=== PATIENT | male | born 1955 | race African-American/Black ===

== ENCOUNTER 2019-01-30 14:19 | Inpatient (IN) ==
[2019-01-30 15:33] LABS: Basophils % 0.9 % (0.0-0.8); Eosinophils # 0.2 10*3/uL (0.0-0.87); Eosinophils % 4.7 % (0.00-10.9); Hematocrit 33.3 VOL% (42.0-52.0); Hemoglobin 10.6 GM/DL (14.0-18.0); Immature Granulocytes % 0.2 %; Immature Granulocytes Absolute 0.01 #; Lymphocytes % 23.9 % (21.2-54.2); Mean Corpuscular HGB Conc 31.8 GM/DL (32-36); Mean Corpuscular Volume 95.1 FL (87-102); Mean Platelet Volume 10.9 FL (9.6-12.0); Monocytes % 16.1 % (1.7-12.7); Neutrophils % 54.2 % (38.7-73.9); Platelet Count 155 T/CUMM (130-400); Red Cell Distribution Width 14.9 % (9.3-17.3); White Blood Count 4.2 T/CUMM (4-12)
[2019-01-30 15:50] LABS: Calcium 7.9 MG/DL (8.5-10.1); Osmolality,Calculated 292.5 MOS/KG (273-304)
[2019-01-30 16:15] LABS: Eosinophils 7 % (0-10); Lymphocytes 34 % (20-55); Segmented Neutrophils 50 % (50-85); Total Cells Counted 100
[2019-01-30 16:16] LABS: Platelet Estimate Normal; Target Cells 1+
[2019-01-30 16:17] LABS: Anisocytosis 2+; Macrocytosis 2+; Microcytosis 1+; Poikilocytosis Slight; Reactive Lymphocytes 1+
[2019-01-30] MEDS ORDERED: ACETAMINOPHEN 325 MG TABLET PO PRN (17:36)
[2019-01-30] MEDS ORDERED: ONDANSETRON 4 MG/2 ML VIAL IV PRN (17:36)
[2019-01-30] MEDS ORDERED: VANCOMYCIN INJ 1,750 MG in SODIUM CHLORIDE 0.9% 500 ML IV PRN (21:00)
[2019-01-30] MEDS ORDERED: VANCOMYCIN INJ 1,750 MG in SODIUM CHLORIDE 0.9% 500 ML IV ONE (21:00)
[2019-01-30] MEDS: ZALEPLON 5 MG CAPSULE PO PRN (22:02)
[2019-01-31 02:09] LABS: Apearance,Urine CLEAR (Clear); Bilirubin,Urine Negative (Negative); Blood, Urine Small mg/dL (Negative); Glucose,Urine (UA) 50 mg/dL (Negative); Ketones,Urine Negative (Negative); Nitrite,Urine Negative (Negative); Protein,Urine 100 MG/DL; RBC,Urine 2 /HPF (0-4); Urine Color Straw (Yellow); Urine Specific Gravity 1.011 (1.001-1.035); Urine Urobilinogen < 2.0 EU/DL (0.2-1.0)
[2019-01-31 04:35] LABS: Basophils % 0.8 % (0.0-0.8); Eosinophils # 0.2 10*3/uL (0.0-0.87); Eosinophils % 6.1 % (0.00-10.9); Hematocrit 31.2 VOL% (42.0-52.0); Immature Granulocytes % 0.3 %; Immature Granulocytes Absolute 0.01 #; Lymphocytes # 1.3 10*3/uL (1.4-4.0); Lymphocytes % 35.3 % (21.2-54.2); Mean Corpuscular HGB Conc 32.1 GM/DL (32-36); Mean Corpuscular Volume 94.3 FL (87-102); Mean Platelet Volume 10.8 FL (9.6-12.0); Neutrophils % 42.5 % (38.7-73.9); Platelet Count 140 T/CUMM (130-400); Red Blood Count 3.31 MC/CUMM (3.8-5.5); Red Cell Distribution Width 14.8 % (9.3-17.3); White Blood Count 3.6 T/CUMM (4-12)
[2019-01-31 05:09] LABS: Calcium 8.2 MG/DL (8.5-10.1); Risk Ratio 2.59; Thyroid Stimulating Hormone 1.07 uIU/ml (0.358-3.74); VLDL CHOLESTEROL 14.6 MG/DL
[2019-01-31] MEDS: amLODIPine 10 MG TABLET PO SCH (09:21)
[2019-01-31] MEDS: FUROSEMIDE 20 MG TABLET PO SCH (09:21)
[2019-01-31] MEDS: POTASSIUM CHLORIDE 20 MEQ TABLET PO SCH (09:21)
[2019-01-31] MEDS: DOXAZOSIN 4 MG TABLET PO SCH (09:21)
[2019-01-31] MEDS: propylthiouraciL 50 MG TABLET PO SCH (09:21)
[2019-01-31] MEDS: PANTOPRAZOLE 40 MG TABLET PO SCH (09:22)
[2019-01-31] MEDS: carvediloL 25 MG TABLET PO SCH ×2 (09:22→17:11)
[2019-01-31] MEDS: ZALEPLON 5 MG CAPSULE PO PRN (20:51)
[2019-01-31] MEDS: SIMVASTATIN 20 MG TABLET PO SCH (20:52)
[2019-01-31] MEDS: FAMOTIDINE 20 MG TABLET PO SCH (20:52)
[2019-02-01 04:45] LABS: Basophils % 0.8 % (0.0-0.8); Eosinophils # 0.2 10*3/uL (0.0-0.87); Hematocrit 31.8 VOL% (42.0-52.0); Hemoglobin 10.2 GM/DL (14.0-18.0); Immature Granulocytes % 0.3 %; Immature Granulocytes Absolute 0.01 #; Lymphocytes # 1.2 10*3/uL (1.4-4.0); Lymphocytes % 32.8 % (21.2-54.2); Mean Corpuscular HGB Conc 32.1 GM/DL (32-36); Mean Corpuscular Volume 94.1 FL (87-102); Monocytes % 15.3 % (1.7-12.7); Neutrophils % 44.8 % (38.7-73.9); Platelet Count 134 T/CUMM (130-400); Red Blood Count 3.38 MC/CUMM (3.8-5.5); Red Cell Distribution Width 14.7 % (9.3-17.3); White Blood Count 3.7 T/CUMM (4-12)
[2019-02-01 05:08] LABS: Calcium 8.4 MG/DL (8.5-10.1); Osmolality,Calculated 294.1 MOS/KG (273-304)
[2019-02-01] MEDS: FUROSEMIDE 20 MG TABLET PO SCH (08:12)
[2019-02-01] MEDS: PANTOPRAZOLE 40 MG TABLET PO SCH (08:12)
[2019-02-01] MEDS: propylthiouraciL 50 MG TABLET PO SCH (08:12)
[2019-02-01] MEDS: POTASSIUM CHLORIDE 20 MEQ TABLET PO SCH (08:12)
[2019-02-01] MEDS: DOXAZOSIN 4 MG TABLET PO SCH (08:12)
[2019-02-01] MEDS: amLODIPine 10 MG TABLET PO SCH (08:13)
[2019-02-01] MEDS: carvediloL 25 MG TABLET PO SCH ×2 (08:14→16:52)
[2019-02-01] MEDS ORDERED: VANCOMYCIN INJ 1,750 MG in SODIUM CHLORIDE 0.9% 500 ML IV ONE (12:00)
[2019-02-01] MEDS ORDERED: MAGNESIUM HYDROXIDE SUSP 30 ML UDCUP PO PRN (14:38)
[2019-02-01] MEDS: FAMOTIDINE 20 MG TABLET PO SCH (20:42)
[2019-02-01] MEDS: SIMVASTATIN 20 MG TABLET PO SCH (20:42)
[2019-02-02 04:02] LABS: Basophils % 0.7 % (0.0-0.8); Eosinophils # 0.2 10*3/uL (0.0-0.87); Eosinophils % 5.3 % (0.00-10.9); Hematocrit 31.3 VOL% (42.0-52.0); Hemoglobin 10.3 GM/DL (14.0-18.0); Immature Granulocytes % 0.2 %; Immature Granulocytes Absolute 0.01 #; Lymphocytes # 1.3 10*3/uL (1.4-4.0); Lymphocytes % 28.1 % (21.2-54.2); Mean Corpuscular HGB Conc 32.9 GM/DL (32-36); Mean Corpuscular Volume 93.4 FL (87-102); Mean Platelet Volume 10.9 FL (9.6-12.0); Monocytes % 15.1 % (1.7-12.7); Neutrophils % 50.6 % (38.7-73.9); Platelet Count 140 T/CUMM (130-400); Red Blood Count 3.35 MC/CUMM (3.8-5.5); Red Cell Distribution Width 14.6 % (9.3-17.3); White Blood Count 4.5 T/CUMM (4-12)
[2019-02-02 04:28] LABS: Calcium 8.1 MG/DL (8.5-10.1)
[2019-02-02] MEDS ORDERED: ALBUTEROL/IPRATROPIUM 3 ML NEB RESP TX ONE (05:52)
[2019-02-02 07:16] LABS: Anisocytosis 2+; Band Neutrophils 1 % (0-10); Eosinophils 3 % (0-10); Lymphocytes 25 % (20-55); Macrocytosis 2+; Platelet Estimate Adequate; Segmented Neutrophils 60 % (50-85); Total Cells Counted 100
[2019-02-02] MEDS: carvediloL 25 MG TABLET PO SCH (09:39)
[2019-02-02] MEDS: propylthiouraciL 50 MG TABLET PO SCH (09:39)
[2019-02-02] MEDS: DOXAZOSIN 4 MG TABLET PO SCH (09:39)
[2019-02-02] MEDS: POTASSIUM CHLORIDE 20 MEQ TABLET PO SCH (09:39)
[2019-02-02] MEDS: amLODIPine 10 MG TABLET PO SCH (09:40)
[2019-02-02] MEDS: FUROSEMIDE 20 MG TABLET PO SCH (09:40)
[2019-02-02] MEDS: PANTOPRAZOLE 40 MG TABLET PO SCH (09:40)
[2019-02-02] MEDS ORDERED: FUROSEMIDE 40 MG/4 ML VIAL IV ONE (10:57)
[2019-02-02] MEDS ORDERED: FUROSEMIDE 40 MG TABLET PO SCH (10:58)
[2019-02-02 11:09] VITALS: BP 174/75
== END 2019-02-02 14:17 | disposition home or self-care (01) | DRG 384 ==
LOC: N.ED 14:19 → N.EDINP 16:52 → INTOOBSV 16:52 → N.3E 19:13 → SUPCPDRO 01-31 15:53
PROVIDERS: ADMIT Internal Medicine; ATTEND Internal Medicine

== ENCOUNTER 2019-02-23 10:45 | Inpatient (IN) ==
[2019-02-23 13:21] LABS: Basophils % 0.3 % (0.0-0.8); Eosinophils # 0.1 10*3/uL (0.0-0.87); Eosinophils % 0.9 % (0.00-10.9); Hematocrit 32.1 VOL% (42.0-52.0); Hemoglobin 10.6 GM/DL (14.0-18.0); Immature Granulocytes % 0.3 %; Immature Granulocytes Absolute 0.02 #; Lymphocytes % 14.2 % (21.2-54.2); Neutrophils % 69.3 % (38.7-73.9); Platelet Count 123 T/CUMM (130-400); Red Blood Count 3.49 MC/CUMM (3.8-5.5); Red Cell Distribution Width 15.2 % (9.3-17.3)
[2019-02-23 13:41] LABS: Albumin 3.1 G/DL (3.4-5.0); Bilirubin,Total 0.5 MG/DL (0.2-1.0); Total Protein 7.7 G/DL (6.4-8.3); Uric Acid 5.2 MG/DL (3.5-7.2)
[2019-02-23] MEDS ORDERED: ONDANSETRON 4 MG/2 ML VIAL IV PRN (14:51)
[2019-02-23] MEDS ORDERED: DOCUSATE SODIUM 100 MG CAPSULE PO PRN (14:51)
[2019-02-23] MEDS ORDERED: ACETAMINOPHEN 325 MG TABLET PO PRN (14:51)
[2019-02-23 16:19] LABS: Apearance,Urine CLEAR (Clear); Bilirubin,Urine Negative (Negative); Blood, Urine Small mg/dL (Negative); Glucose,Urine (UA) Negative (Negative); Ketones,Urine Negative (Negative); Mucus,Urine Occasional /LPF (Occasional); Nitrite,Urine Negative (Negative); Protein,Urine 100 MG/DL; RBC,Urine 4 /HPF (0-4); Urine Color Yellow (Yellow); Urine Specific Gravity 1.012 (1.001-1.035); Urine Urobilinogen < 2.0 EU/DL (0.2-1.0); WBC,Urine <1 /HPF (0-6)
[2019-02-23] MEDS: carvediloL 25 MG TABLET PO SCH (18:31)
[2019-02-23] MEDS: methylPREDNISolone SOD SUC 40 MG/1 ML VIAL IV SCH (18:31)
[2019-02-23] MEDS ORDERED: methylPREDNISolone SOD SUC 40 MG/1 ML VIAL IV SCH (21:00)
[2019-02-23] MEDS: SIMVASTATIN 20 MG TABLET PO SCH (21:02)
[2019-02-24 05:41] LABS: Basophils % 0.2 % (0.0-0.8); Hemoglobin 10.3 GM/DL (14.0-18.0); Immature Granulocytes % 0.5 %; Immature Granulocytes Absolute 0.03 #; Lymphocytes # 0.5 10*3/uL (1.4-4.0); Lymphocytes % 8.7 % (21.2-54.2); Mean Corpuscular HGB Conc 32.2 GM/DL (32-36); Neutrophils % 85.6 % (38.7-73.9); Platelet Count 122 T/CUMM (130-400); Red Blood Count 3.44 MC/CUMM (3.8-5.5); Red Cell Distribution Width 15.3 % (9.3-17.3); White Blood Count 6.2 T/CUMM (4-12)
[2019-02-24] MEDS: methylPREDNISolone SOD SUC 40 MG/1 ML VIAL IV SCH ×2 (05:47→17:06)
[2019-02-24] MEDS: carvediloL 25 MG TABLET PO SCH ×2 (09:51→17:08)
[2019-02-24] MEDS: ALLOPURINOL 300 MG TABLET PO SCH (09:51)
[2019-02-24] MEDS: ASPIRIN EC 325 MG TABLET PO SCH (09:51)
[2019-02-24] MEDS: amLODIPine 10 MG TABLET PO SCH (09:51)
[2019-02-24] MEDS: SIMVASTATIN 20 MG TABLET PO SCH (21:11)
[2019-02-25] MEDS: methylPREDNISolone SOD SUC 40 MG/1 ML VIAL IV SCH ×2 (05:43→18:01)
[2019-02-25 06:05] LABS: Hematocrit 30.3 VOL% (42.0-52.0); Hemoglobin 10.1 GM/DL (14.0-18.0); Immature Granulocytes % 0.5 %; Immature Granulocytes Absolute 0.04 #; Lymphocytes # 0.5 10*3/uL (1.4-4.0); Lymphocytes % 6.7 % (21.2-54.2); Mean Corpuscular HGB Conc 33.3 GM/DL (32-36); Mean Corpuscular Volume 89.9 FL (87-102); Mean Platelet Volume 11.9 FL (9.6-12.0); Neutrophils % 86.8 % (38.7-73.9); Platelet Count 133 T/CUMM (130-400); Red Blood Count 3.37 MC/CUMM (3.8-5.5); Red Cell Distribution Width 14.8 % (9.3-17.3); White Blood Count 7.6 T/CUMM (4-12)
[2019-02-25 06:14] LABS: Calcium 8.5 MG/DL (8.5-10.1); Osmolality,Calculated 302.2 MOS/KG (273-304)
[2019-02-25] MEDS: amLODIPine 10 MG TABLET PO SCH (09:17)
[2019-02-25] MEDS: carvediloL 25 MG TABLET PO SCH ×2 (09:17→17:00)
[2019-02-25] MEDS: ALLOPURINOL 300 MG TABLET PO SCH (09:17)
[2019-02-25] MEDS: ASPIRIN EC 325 MG TABLET PO SCH (09:17)
[2019-02-25] MEDS: SIMVASTATIN 20 MG TABLET PO SCH (20:54)
[2019-02-26 07:00] LABS: Basophils % 0.1 % (0.0-0.8); Hematocrit 29.7 VOL% (42.0-52.0); Hemoglobin 10.2 GM/DL (14.0-18.0); Immature Granulocytes % 0.8 %; Immature Granulocytes Absolute 0.06 #; Lymphocytes # 0.6 10*3/uL (1.4-4.0); Lymphocytes % 7.9 % (21.2-54.2); Mean Corpuscular HGB Conc 34.3 GM/DL (32-36); Mean Corpuscular Volume 89.5 FL (87-102); Mean Platelet Volume 12.2 FL (9.6-12.0); NRBC # 0.02 10*3/uL; Neutrophils % 86.2 % (38.7-73.9); Platelet Count 145 T/CUMM (130-400); Red Blood Count 3.32 MC/CUMM (3.8-5.5); Red Cell Distribution Width 14.6 % (9.3-17.3); White Blood Count 7.4 T/CUMM (4-12)
[2019-02-26 07:32] LABS: Calcium 8.3 MG/DL (8.5-10.1); Osmolality,Calculated 308.2 MOS/KG (273-304)
[2019-02-26] MEDS: ALLOPURINOL 300 MG TABLET PO SCH (09:13)
[2019-02-26] MEDS: ASPIRIN EC 325 MG TABLET PO SCH (09:13)
[2019-02-26] MEDS: amLODIPine 10 MG TABLET PO SCH (09:13)
[2019-02-26] MEDS: predniSONE 20 MG TABLET PO SCH (09:13)
[2019-02-26] MEDS: carvediloL 25 MG TABLET PO SCH ×2 (09:13→16:50)
[2019-02-26 10:23] LABS: Cyclic Citrull Peptide Interp Negative
[2019-02-26] MEDS: SIMVASTATIN 20 MG TABLET PO SCH (21:11)
[2019-02-27] MEDS: ASPIRIN EC 325 MG TABLET PO SCH (08:46)
[2019-02-27] MEDS: ALLOPURINOL 300 MG TABLET PO SCH (08:46)
[2019-02-27] MEDS: carvediloL 25 MG TABLET PO SCH (08:46)
[2019-02-27] MEDS: predniSONE 20 MG TABLET PO SCH (08:46)
[2019-02-27] MEDS: amLODIPine 10 MG TABLET PO SCH (08:46)
[2019-02-27 09:03] LABS: Calcium 8.2 MG/DL (8.5-10.1); Osmolality,Calculated 307.4 MOS/KG (273-304)
[2019-02-27 12:34] VITALS: BP 143/78
== END 2019-02-27 15:10 | disposition home health service (06) | DRG 351 ==
LOC: N.ED 10:45 → N.EDINP 14:51 → SUATTDRO 14:51 → N.5E 15:35
PROVIDERS: ADMIT Internal Medicine Cardiovascular Disease; ATTEND Internal Medicine

== ENCOUNTER 2020-03-04 09:55 | Inpatient (IN) ==
[2020-03-04 11:44] LABS: Basophils % 0.7 % (0.0-0.8); Eosinophils # 0.1 10*3/uL (0.0-0.87); Eosinophils % 2.2 % (0.00-10.9); Hematocrit 37.8 VOL% (42.0-52.0); Hemoglobin 12.8 GM/DL (14.0-18.0); Immature Granulocytes Absolute 0.06 #; Lymphocytes # 1.5 10*3/uL (1.4-4.0); Lymphocytes % 26.4 % (21.2-54.2); Mean Corpuscular HGB Conc 33.9 GM/DL (32-36); Mean Corpuscular Volume 95.2 FL (87-102); Mean Platelet Volume 10.5 FL (9.6-12.0); Monocytes % 15.7 % (1.7-12.7); Platelet Count 161 T/CUMM (130-400); Red Blood Count 3.97 MC/CUMM (3.8-5.5); Red Cell Distribution Width 15.7 % (9.3-17.3); White Blood Count 5.8 T/CUMM (4-12)
[2020-03-04 11:58] LABS: Albumin 3.8 G/DL (3.4-5.0); Bilirubin,Total 0.5 MG/DL (0.2-1.0); Calcium 9.1 MG/DL (8.5-10.1); Total Protein 8.3 G/DL (6.4-8.3)
[2020-03-04] MEDS ORDERED: ASPIRIN 325 MG TABLET PO STA (12:07)
[2020-03-04 12:20] LABS: Eosinophils 3 % (0-10); Lymphocytes 31 % (20-55); Platelet Estimate Normal; Segmented Neutrophils 51 % (50-85); Total Cells Counted 100
[2020-03-04 12:21] LABS: Anisocytosis 2+; Hypochromasia Slight; Macrocytosis 1+
[2020-03-04] MEDS ORDERED: ONDANSETRON 4 MG/2 ML VIAL IV PRN (12:41)
[2020-03-04] MEDS ORDERED: DEXTROSE 50% 25 GM/50 ML VIAL IV PRN (12:41)
[2020-03-04] MEDS ORDERED: GLUCAGON 1 MG VIAL IM PRN (12:41)
[2020-03-04] MEDS ORDERED: ACETAMINOPHEN 325 MG TABLET PO PRN (12:41)
[2020-03-04] MEDS ORDERED: hydrOXYzine HCL 25 MG TABLET PO PRN (14:47)
[2020-03-04] MEDS ORDERED: INDOMETHACIN 25 MG CAPSULE PO PRN (14:47)
[2020-03-04] MEDS: HEPARIN 5,000 UNIT/1 ML VIAL SUBCUT SCH ×2 (16:26→23:34)
[2020-03-04] MEDS: SEVELAMER CARBONATE 800 MG TABLET PO SCH (17:58)
[2020-03-04] MEDS: carvediloL 3.125 MG TABLET PO SCH (21:16)
[2020-03-04] MEDS: ROSUVASTATIN 20 MG TABLET PO SCH (21:17)
[2020-03-04] MEDS: propylthiouraciL 50 MG TABLET PO SCH (21:17)
[2020-03-04] MEDS: DOCUSATE SODIUM 100 MG CAPSULE PO SCH (21:17)
[2020-03-05 05:47] LABS: Basophils # 0.1 10*3/uL (0.0-0.2); Basophils % 0.8 % (0.0-0.8); Eosinophils # 0.2 10*3/uL (0.0-0.87); Eosinophils % 3.5 % (0.00-10.9); Hematocrit 32.5 VOL% (42.0-52.0); Immature Granulocytes % 0.8 %; Immature Granulocytes Absolute 0.05 #; Lymphocytes % 30.9 % (21.2-54.2); Mean Corpuscular HGB Conc 33.8 GM/DL (32-36); Mean Corpuscular Volume 94.5 FL (87-102); Mean Platelet Volume 9.9 FL (9.6-12.0); Platelet Count 140 T/CUMM (130-400); Red Blood Count 3.44 MC/CUMM (3.8-5.5); Red Cell Distribution Width 15.5 % (9.3-17.3); White Blood Count 6.6 T/CUMM (4-12)
[2020-03-05 06:19] LABS: Eosinophils 3 % (0-10); Hypochromasia Slight; Lymphocytes 31 % (20-55); Platelet Estimate Adequate; Segmented Neutrophils 57 % (50-85); Total Cells Counted 100
[2020-03-05 06:37] LABS: Calcium 8.6 MG/DL (8.5-10.1); Osmolality,Calculated 288.1 MOS/KG (273-304)
[2020-03-05 06:40] LABS: Risk Ratio 3.65; VLDL CHOLESTEROL 20.4 MG/DL
[2020-03-05 06:43] LABS: Troponin I 0.062 NG/ML (0.00-0.045)
[2020-03-05] MEDS: FUROSEMIDE 40 MG TABLET PO SCH (08:35)
[2020-03-05] MEDS: SEVELAMER CARBONATE 800 MG TABLET PO SCH ×3 (08:35→17:06)
[2020-03-05] MEDS: ASPIRIN EC 81 MG TABLET PO SCH (08:35)
[2020-03-05] MEDS: propylthiouraciL 50 MG TABLET PO SCH ×2 (08:35→21:59)
[2020-03-05] MEDS: allopurinoL 300 MG TABLET PO SCH (08:35)
[2020-03-05] MEDS: carvediloL 3.125 MG TABLET PO SCH (08:35)
[2020-03-05] MEDS: HEPARIN 5,000 UNIT/1 ML VIAL SUBCUT SCH ×2 (08:36→17:06)
[2020-03-05] MEDS ORDERED: [UNRECOGNIZED DRUG - OTHER] PO SCH (09:00)
[2020-03-05] MEDS ORDERED: amLODIPine 5 MG TABLET PO SCH (09:00)
[2020-03-05] MEDS ORDERED: HEPARIN 10,000 UNIT/10 ML VIAL IV PRN (14:10)
[2020-03-05] MEDS ORDERED: METOPROLOL TARTRATE 5 MG/5 ML VIAL IV ONE (15:32)
[2020-03-05] MEDS: carvediloL 6.25 MG TABLET PO SCH (21:59)
[2020-03-05] MEDS: ASCORBIC ACID 500 MG TABLET PO SCH (21:59)
[2020-03-05] MEDS: DOCUSATE SODIUM 100 MG CAPSULE PO SCH (21:59)
[2020-03-05] MEDS: ROSUVASTATIN 20 MG TABLET PO SCH (21:59)
[2020-03-06] MEDS: HEPARIN 5,000 UNIT/1 ML VIAL SUBCUT SCH ×2 (00:17→08:33)
[2020-03-06 04:20] LABS: ABG Base Excess -0.2 MMOL/L (-2.5-2.5); ABG HCO3 24.2 MMOL/L (20-26); ABG Oxygen Saturation 96.6 % (95-100); ABG PCO2 41.2 MM HG (35-48); ABG PH 7.387 (7.35-7.45); ABG PO2 88.2 MM HG (80-95); ABG TCO2 22.2 MMOL/L (23-27); Allen Test Positive
[2020-03-06 06:04] LABS: Basophils # 0.1 10*3/uL (0.0-0.2); Eosinophils # 0.2 10*3/uL (0.0-0.87); Eosinophils % 3.1 % (0.00-10.9); Hematocrit 36.9 VOL% (42.0-52.0); Hemoglobin 12.4 GM/DL (14.0-18.0); Immature Granulocytes % 0.3 %; Immature Granulocytes Absolute 0.02 #; Lymphocytes # 1.7 10*3/uL (1.4-4.0); Lymphocytes % 27.9 % (21.2-54.2); Mean Corpuscular HGB Conc 33.6 GM/DL (32-36); Mean Corpuscular Volume 95.1 FL (87-102); Mean Platelet Volume 10.2 FL (9.6-12.0); Monocytes % 17.7 % (1.7-12.7); Platelet Count 134 T/CUMM (130-400); Red Blood Count 3.88 MC/CUMM (3.8-5.5); White Blood Count 6.1 T/CUMM (4-12)
[2020-03-06 06:08] LABS: Calcium 8.9 MG/DL (8.5-10.1); Osmolality,Calculated 281.1 MOS/KG (273-304)
[2020-03-06 06:12] LABS: Albumin 3.4 G/DL (3.4-5.0); Bilirubin,Total 0.8 MG/DL (0.2-1.0); Calcium 9.1 MG/DL (8.5-10.1); Osmolality,Calculated 282.1 MOS/KG (273-304); Total Protein 7.8 G/DL (6.4-8.3)
[2020-03-06 07:29] LABS: Band Neutrophils 1 % (0-10); Eosinophils 1 % (0-10); Lymphocytes 28 % (20-55); Macrocytosis 1+; Platelet Estimate Adequate; Segmented Neutrophils 53 % (50-85); Total Cells Counted 100
[2020-03-06 07:30] LABS: Anisocytosis 2+; Target Cells 1+
[2020-03-06 08:28] LABS: Calcium 8.9 MG/DL (8.5-10.1); Osmolality,Calculated 283.1 MOS/KG (273-304)
[2020-03-06] MEDS: SEVELAMER CARBONATE 800 MG TABLET PO SCH ×3 (08:32→16:45)
[2020-03-06] MEDS: propylthiouraciL 50 MG TABLET PO SCH ×2 (08:32→21:08)
[2020-03-06] MEDS: carvediloL 6.25 MG TABLET PO SCH (08:32)
[2020-03-06] MEDS: FUROSEMIDE 40 MG TABLET PO SCH (08:32)
[2020-03-06] MEDS: allopurinoL 300 MG TABLET PO SCH (08:32)
[2020-03-06] MEDS: PANTOPRAZOLE 40 MG TABLET PO SCH (08:32)
[2020-03-06] MEDS: ASPIRIN EC 81 MG TABLET PO SCH (08:32)
[2020-03-06] MEDS: ASCORBIC ACID 500 MG TABLET PO SCH ×2 (08:32→21:08)
[2020-03-06] MEDS: CHLORHEXIDINE 0.12% ORAL RINSE 60 ML BOTTLE SWISH/SPIT SCH ×2 (08:33→21:10)
[2020-03-06 10:39] LABS: Hepatitis B Core IgM Quant 0.18 Index; Hepatitis B Surface Ag Quant < 0.10 Index; Hepatitis B Surface Ag Result Negative (Negative); Hepatitis C Virus Ab Quant 0.07 Index; Hepatitis C Virus Ab Result Negative (Negative)
[2020-03-06] MEDS ORDERED: SODIUM CHLORIDE 0.9% 1,000 ML IV SCH (11:30)
[2020-03-06] MEDS ORDERED: NITROGLYCERIN SL 0.4 MG TABLET SL ONE (11:32)
[2020-03-06] MEDS ORDERED: NITROGLYCERIN SL 0.4 MG TABLET SL PRN (11:42)
[2020-03-06] MEDS ORDERED: LORazepam 1 MG TABLET PO ONE (11:58)
[2020-03-06] MEDS: CHLORHEXIDINE 4% SOLN 118 ML BOTTLE TOP SCH ×2 (12:15→17:29)
[2020-03-06] MEDS: DOCUSATE SODIUM 100 MG CAPSULE PO SCH (21:08)
[2020-03-06] MEDS: ROSUVASTATIN 20 MG TABLET PO SCH (21:08)
[2020-03-06] MEDS: carvediloL 12.5 MG TABLET PO SCH (21:09)
[2020-03-07] MEDS ORDERED: PAPAVERINE 60 MG/2 ML VIAL ONE (04:22)
[2020-03-07] MEDS ORDERED: VANCOMYCIN 500 MG VIAL ONE (04:23)
[2020-03-07] MEDS ORDERED: VANCOMYCIN 1,000 MG VIAL ONE (04:23)
[2020-03-07] MEDS: CHLORHEXIDINE 4% SOLN 118 ML BOTTLE TOP SCH (04:49)
[2020-03-07] MEDS ORDERED: LORazepam 1 MG TABLET PO ONE (05:00)
[2020-03-07] MEDS ORDERED: CEFUROXIME INJ 1,500 MG in SYRINGE 1 EACH IV ONE (05:00)
[2020-03-07 05:20] LABS: Basophils % 0.7 % (0.0-0.8); Eosinophils # 0.2 10*3/uL (0.0-0.87); Eosinophils % 3.5 % (0.00-10.9); Hematocrit 42.2 VOL% (42.0-52.0); Hemoglobin 13.8 GM/DL (14.0-18.0); Immature Granulocytes % 0.7 %; Immature Granulocytes Absolute 0.04 #; Lymphocytes # 2.2 10*3/uL (1.4-4.0); Mean Corpuscular HGB Conc 32.7 GM/DL (32-36); Mean Corpuscular Volume 96.3 FL (87-102); Mean Platelet Volume 10.9 FL (9.6-12.0); Monocytes % 15.4 % (1.7-12.7); Neutrophils % 42.7 % (38.7-73.9); Platelet Count 148 T/CUMM (130-400); Red Blood Count 4.38 MC/CUMM (3.8-5.5); Red Cell Distribution Width 15.2 % (9.3-17.3)
[2020-03-07 05:44] LABS: Calcium 9.6 MG/DL (8.5-10.1); Osmolality,Calculated 278.2 MOS/KG (273-304)
[2020-03-07] MEDS: carvediloL 12.5 MG TABLET PO SCH ×2 (05:49→09:00)
[2020-03-07 05:50] LABS: Calcium 9.6 MG/DL (8.5-10.1); Osmolality,Calculated 279.2 MOS/KG (273-304)
[2020-03-07] MEDS ORDERED: NITROGLYCERIN DRIP 50 MG/250 ML BOTTLE IV ONE (05:54)
[2020-03-07] MEDS ORDERED: CALCIUM CHLORIDE 1,000 MG/10 ML VIAL IV ONE ×2 (05:54→10:33)
[2020-03-07] MEDS ORDERED: VECURONIUM 10 MG VIAL IV ONE (05:54)
[2020-03-07] MEDS ORDERED: MIDAZOLAM 10 MG/2 ML VIAL ONE ×3 (05:54→08:19)
[2020-03-07] MEDS ORDERED: SODIUM CHLORIDE 0.9% 2,000 ML IV ONE (05:54)
[2020-03-07] MEDS ORDERED: PHENYLEPHRINE DRIP 20 MG/250 ML PREMIX IV ONE (05:54)
[2020-03-07] MEDS ORDERED: AMINOCAPROIC ACID 5,000 MG/20 ML VIAL ONE (05:54)
[2020-03-07] MEDS ORDERED: SUFentanil 250 MCG/5 ML AMP ONE ×3 (05:56→08:19)
[2020-03-07] MEDS ORDERED: MINERAL OIL/PETROLATUM OPH OINT 3.5 GM TUBE ONE (06:11)
[2020-03-07] MEDS ORDERED: ePHEDrine 50 MG/ML VIAL ONE (07:16)
[2020-03-07] MEDS ORDERED: LIDOCAINE 2% TOP JELLY 20 ML VIAL INTRAURETH ONE (07:38)
[2020-03-07 08:00] LABS: ABG Base Excess -0.9 MMOL/L (-2.5-2.5); ABG HCO3 23.7 MMOL/L (20-26); ABG Oxygen Saturation 99.9 % (95-100); ABG PCO2 39.9 MM HG (35-48); ABG PH 7.387 (7.35-7.45); ABG TCO2 21.2 MMOL/L (23-27); Glucose Heart Surgery 136 MG/DL (74-106); Hematocrit Heart Surgery 37.3 PERCENT (42-52); Hemoglobin Heart Surgery 12.1 G/DL (14.0-18.0); Ionized Calcium Arterial 1.12 MMOL/L (1.21-1.46); PCO2 Patient Temp Arterial 39.9 MMHG; PH Patient Temp Arterial 7.387; Patient Temperature 37 CELCIUS; Potassium Heart/CVR 4.9 MMOL/L (3.5-5.1); Sodium Heart/CVR 138 MMOL/L (135-145)
[2020-03-07] MEDS: SEVELAMER CARBONATE 800 MG TABLET PO SCH ×2 (08:00→12:00)
[2020-03-07] MEDS ORDERED: SODIUM BICARBONATE 50 MEQ/50 ML VIAL IV ONE ×3 (08:09→23:32)
[2020-03-07] MEDS ORDERED: POTASSIUM CHLORIDE RIDER 0 ML IV ONE (08:09)
[2020-03-07] MEDS ORDERED: NITROPRUSSIDE 50 MG/2 ML VIAL ONE (08:09)
[2020-03-07] MEDS ORDERED: PHENYLEPHRINE DRIP 40 MG/250 ML PREMIX IV ONE (08:10)
[2020-03-07] MEDS ORDERED: CALCIUM CHLORIDE 1,000 MG/10 ML SYRINGE IV ONE (08:10)
[2020-03-07] MEDS: propylthiouraciL 50 MG TABLET PO SCH (09:00)
[2020-03-07] MEDS: ASCORBIC ACID 500 MG TABLET PO SCH (09:00)
[2020-03-07] MEDS: allopurinoL 300 MG TABLET PO SCH (09:00)
[2020-03-07] MEDS: PANTOPRAZOLE 40 MG TABLET PO SCH (09:00)
[2020-03-07] MEDS: ASPIRIN EC 81 MG TABLET PO SCH (09:00)
[2020-03-07] MEDS: CHLORHEXIDINE 0.12% ORAL RINSE 60 ML BOTTLE SWISH/SPIT SCH ×2 (09:00→21:00)
[2020-03-07] MEDS: FUROSEMIDE 40 MG TABLET PO SCH (09:00)
[2020-03-07 09:44] LABS: Hematocrit Heart Surgery 24.1 PERCENT (42-52); Hemoglobin Heart Surgery 7.7 G/DL (14.0-18.0); PCO2 Patient Temp Venous 37.7 MM HG; PH Patient Temp Venous 7.4; VBG HCO3 23.5 MEQ/L (24-28); VBG Oxygen Saturation 85.6 %; VBG PCO2 43.6 MMHG (41-51); VBG PH 7.358
[2020-03-07 09:47] LABS: Potassium Heart/CVR 6.2 MMOL/L (3.5-5.1)
[2020-03-07 10:17] LABS: Hemoglobin Heart Surgery 7.7 G/DL (14.0-18.0); PCO2 Patient Temp Venous 29.9 MM HG; PH Patient Temp Venous 7.439; PO2 Patient Temp Venous 34.6 MM HG; Potassium Heart/CVR 5.6 MMOL/L (3.5-5.1); VBG Base Excess -3.2 MEQ/L (0-4); VBG HCO3 21.4 MEQ/L (24-28); VBG Oxygen Saturation 71.7 %; VBG PCO2 32.9 MMHG (41-51); VBG PH 7.41; VBG PO2 39.8 MMHG (17-40)
[2020-03-07] MEDS ORDERED: AMIODARONE 150 MG/3 ML VIAL ONE (10:36)
[2020-03-07] MEDS ORDERED: THROMBIN TOPICAL (RECOMBINANT) 5,000 UNIT VIAL TOP ONE (10:37)
[2020-03-07] MEDS ORDERED: ALBUMIN 25% 25 GM/100 ML VIAL IV ONE (10:47)
[2020-03-07] MEDS ORDERED: MANNITOL 100 GM/500 ML BAG IV ONE (10:50)
[2020-03-07] MEDS ORDERED: MAGNESIUM SULFATE 5 GM/10 ML VIAL IV ONE (10:50)
[2020-03-07] MEDS ORDERED: DEXTROSE 5% KCL 20 MEQ 20 MEQ/1,000 ML BAG IV ONE (10:50)
[2020-03-07] MEDS ORDERED: methylPREDNISolone SOD SUC 1,000 MG/8 ML VIAL ONE (10:50)
[2020-03-07] MEDS ORDERED: LIDOCAINE 2% 5 ML VIAL ONE (10:50)
[2020-03-07] MEDS ORDERED: PROTAMINE SULFATE 250 MG/25 ML VIAL IV ONE (10:51)
[2020-03-07] MEDS ORDERED: HEPARIN 10,000 UNIT/10 ML VIAL ONE (10:51)
[2020-03-07] MEDS ORDERED: FUROSEMIDE 20 MG/2 ML VIAL ONE (10:51)
[2020-03-07 10:57] LABS: ABG Base Excess -3.1 MMOL/L (-2.5-2.5); ABG HCO3 20.8 MMOL/L (20-26); ABG Oxygen Saturation 99.3 % (95-100); ABG PCO2 32.5 MM HG (35-48); ABG PH 7.425 (7.35-7.45); ABG PO2 350.9 MM HG (80-95); ABG TCO2 21.8 MMOL/L (23-27); Glucose Heart Surgery 135 MG/DL (74-106); Hemoglobin Heart Surgery 8.1 G/DL (14.0-18.0); PCO2 Patient Temp Arterial 32.5 MMHG; PH Patient Temp Arterial 7.425; PO2 Patient Temp Arterial 350.9 MM HG; Patient Temperature 37 CELCIUS; Potassium Heart/CVR 4.8 MMOL/L (3.5-5.1); Sodium Heart/CVR 132 MMOL/L (135-145)
[2020-03-07] MEDS ORDERED: PROTAMINE SULFATE 50 MG/5 ML VIAL IV ONE ×2 (11:40→12:22)
[2020-03-07] MEDS ORDERED: SEVOFLURANE 1 UNIT/15 MINUTE INH ONE (11:40)
[2020-03-07] MEDS: SODIUM CHLORIDE 0.45% 1,000 ML IV SCH ×2 (12:05)
[2020-03-07] MEDS: PHENYLEPHRINE DRIP 40 MG/250 ML PREMIX IV PRN ×2 (12:10→22:16)
[2020-03-07] MEDS ORDERED: POTASSIUM CHLORIDE RIDER 20 MEQ in PREMIX 1 EACH IV PRN (12:13)
[2020-03-07] MEDS ORDERED: INSULIN REGULAR DRIP 100 ML IV SCH (12:13)
[2020-03-07] MEDS ORDERED: VECURONIUM 10 MG VIAL IV PRN ×2 (12:13)
[2020-03-07] MEDS ORDERED: INSULIN REGULAR 100 UNIT/ML IV ONE ×2 (12:13→23:32)
[2020-03-07] MEDS ORDERED: MIDAZOLAM 10 MG/2 ML VIAL IV PRN (12:13)
[2020-03-07] MEDS ORDERED: MAGNESIUM SULF RIDER 2 GM in PREMIX 1 EACH IV PRN (12:13)
[2020-03-07] MEDS ORDERED: CALCIUM CHLORIDE 1,000 MG/10 ML SYRINGE IV PRN (12:13)
[2020-03-07] MEDS ORDERED: MAGNESIUM SULF RIDER 4 GM in PREMIX 1 EACH IV PRN (12:13)
[2020-03-07] MEDS ORDERED: ONDANSETRON 4 MG/2 ML VIAL IV PRN (12:13)
[2020-03-07] MEDS ORDERED: MORPHINE 10 MG/1 ML VIAL IV PRN (12:13)
[2020-03-07] MEDS ORDERED: POTASSIUM CHLORIDE RIDER 10 MEQ in PREMIX 1 EACH IV PRN (12:13)
[2020-03-07] MEDS ORDERED: INSULIN REGULAR 100 UNIT/ML IV PRN (12:13)
[2020-03-07] MEDS ORDERED: DEXTROSE 50% 25 GM/50 ML VIAL IV PRN (12:13)
[2020-03-07] MEDS ORDERED: CHLORHEXIDINE 4% SOLN 118 ML BOTTLE TOP PRN (12:13)
[2020-03-07] MEDS ORDERED: NITROPRUSSIDE 100 MG in DEXTROSE 5% 250 ML IV PRN (12:13)
[2020-03-07] MEDS ORDERED: ACETAMINOPHEN 650 MG SUPP RECTAL PRN (12:13)
[2020-03-07] MEDS ORDERED: MIDAZOLAM 2 MG/2 ML VIAL IV PRN (12:13)
[2020-03-07 12:31] LABS: ABG Base Excess -4.3 MMOL/L (-2.5-2.5); ABG HCO3 20.8 MMOL/L (20-26); ABG Oxygen Saturation 99.4 % (95-100); ABG PCO2 35.4 MM HG (35-48); ABG PH 7.369 (7.35-7.45); ABG TCO2 18.9 MMOL/L (23-27); Glucose Heart Surgery 141 MG/DL (74-106); Hematocrit Heart Surgery 27.7 PERCENT (42-52); Hemoglobin Heart Surgery 8.9 G/DL (14.0-18.0); Potassium Heart/CVR 4.9 MMOL/L (3.5-5.1)
[2020-03-07 12:33] LABS: Basophils % 0.3 % (0.0-0.8); Eosinophils # 0.1 10*3/uL (0.0-0.87); Eosinophils % 1.1 % (0.00-10.9); Hematocrit 25.9 VOL% (42.0-52.0); Immature Granulocytes % 0.8 %; Immature Granulocytes Absolute 0.06 #; Lymphocytes # 1.2 10*3/uL (1.4-4.0); Lymphocytes % 15.6 % (21.2-54.2); Mean Corpuscular Volume 95.6 FL (87-102); Mean Platelet Volume 10.5 FL (9.6-12.0); Monocytes % 8.8 % (1.7-12.7); Neutrophils % 73.4 % (38.7-73.9); Red Cell Distribution Width 15.2 % (9.3-17.3); White Blood Count 7.9 T/CUMM (4-12)
[2020-03-07 12:36] LABS: Hemoglobin 8.8 GM/DL (14.0-18.0)
[2020-03-07 12:37] LABS: Platelet Count 96 T/CUMM (130-400); Red Blood Count 2.71 MC/CUMM (3.8-5.5)
[2020-03-07 12:49] LABS: Albumin 2.6 G/DL (3.4-5.0); Bilirubin,Total 1.3 MG/DL (0.2-1.0); Calcium 8.3 MG/DL (8.5-10.1); Osmolality,Calculated 285.7 MOS/KG (273-304); Total Protein 5.6 G/DL (6.4-8.3)
[2020-03-07 12:52] LABS: INR 1.2; PT Patient Result 12.7 SECS (9.8-11.9); Partial Thromboplastin Time 30.2 SECS (23.9-33.8)
[2020-03-07 12:54] LABS: Anisocytosis 2+; Macrocytosis 1+; Platelet Estimate Decreased; Target Cells Few
[2020-03-07 12:55] LABS: Poikilocytosis Slight
[2020-03-07 13:09] LABS: CKMB % 3.7 %
[2020-03-07 13:17] LABS: Troponin I 2.07 NG/ML (0.00-0.045)
[2020-03-07] MEDS: LACTATED RINGERS 250 ML IV PRN ×2 (14:10→15:40)
[2020-03-07 14:52] LABS: ABG Base Excess -6.3 MMOL/L (-2.5-2.5); ABG HCO3 19.2 MMOL/L (20-26); ABG Oxygen Saturation 98.1 % (95-100); ABG PCO2 37.3 MM HG (35-48); ABG TCO2 17.5 MMOL/L (23-27); Glucose Heart Surgery 152 MG/DL (74-106); Hematocrit Heart Surgery 32.1 PERCENT (42-52); Hemoglobin Heart Surgery 10.4 G/DL (14.0-18.0); Potassium Heart/CVR 5.6 MMOL/L (3.5-5.1)
[2020-03-07] MEDS: ALBUMIN 5% 12.5 GM in PREMIX 1 EACH IV PRN ×3 (15:25→18:28)
[2020-03-07] MEDS: MORPHINE 4 MG/1 ML VIAL IV PRN ×2 (17:05→18:58)
[2020-03-07 17:43] LABS: ABG Base Excess -5.5 MMOL/L (-2.5-2.5); ABG HCO3 19.9 MMOL/L (20-26); ABG Oxygen Saturation 98.9 % (95-100); ABG PCO2 32.8 MM HG (35-48); ABG PH 7.371 (7.35-7.45); ABG TCO2 17.5 MMOL/L (23-27); Glucose Heart Surgery 136 MG/DL (74-106); Hematocrit Heart Surgery 29.1 PERCENT (42-52); Hemoglobin Heart Surgery 9.4 G/DL (14.0-18.0)
[2020-03-07 17:47] LABS: Potassium Heart/CVR 6.2 MMOL/L (3.5-5.1)
[2020-03-07 21:49] LABS: CKMB % 2.9 %
[2020-03-07 21:51] LABS: Troponin I 2.59 NG/ML (0.00-0.045)
[2020-03-07 23:18] LABS: ABG Base Excess -8.9 MMOL/L (-2.5-2.5); ABG HCO3 17.3 MMOL/L (20-26); ABG Oxygen Saturation 98.3 % (95-100); ABG PCO2 31.5 MM HG (35-48); ABG PH 7.321 (7.35-7.45); Glucose Heart Surgery 138 MG/DL (74-106); Hematocrit Heart Surgery 30.7 PERCENT (42-52); Hemoglobin Heart Surgery 9.9 G/DL (14.0-18.0)
[2020-03-07 23:23] LABS: Potassium Heart/CVR 7.1 MMOL/L (3.5-5.1)
[2020-03-07] MEDS: DEXTROSE 50% 25 GM/50 ML VIAL IV PRN (23:44)
[2020-03-08 00:49] LABS: ABG Base Excess -6.4 MMOL/L (-2.5-2.5); ABG HCO3 19.1 MMOL/L (20-26); ABG Oxygen Saturation 97.8 % (95-100); ABG PCO2 42.8 MM HG (35-48); ABG PH 7.279 (7.35-7.45); ABG TCO2 18.6 MMOL/L (23-27); Glucose Heart Surgery 167 MG/DL (74-106); Hemoglobin Heart Surgery 9.4 G/DL (14.0-18.0); Potassium Heart/CVR 5.2 MMOL/L (3.5-5.1)
[2020-03-08 02:04] LABS: ABG Base Excess -6.1 MMOL/L (-2.5-2.5); ABG HCO3 20.1 MMOL/L (20-26); ABG Oxygen Saturation 95.8 % (95-100); ABG PCO2 42.7 MM HG (35-48); ABG PH 7.291 (7.35-7.45); ABG PO2 91.8 MM HG (80-95); ABG TCO2 21.4 MMOL/L (23-27); Glucose Heart Surgery 102 MG/DL (74-106); Hemoglobin Heart Surgery 9.8 G/DL (14.0-18.0); Potassium Heart/CVR 5.5 MMOL/L (3.5-5.1)
[2020-03-08] MEDS: MORPHINE 4 MG/1 ML VIAL IV PRN (03:03)
[2020-03-08 04:16] LABS: ABG Base Excess -6.9 MMOL/L (-2.5-2.5); ABG HCO3 18.8 MMOL/L (20-26); ABG Oxygen Saturation 96.1 % (95-100); ABG PCO2 49.2 MM HG (35-48); ABG PH 7.233 (7.35-7.45); ABG PO2 94.2 MM HG (80-95); ABG TCO2 19.3 MMOL/L (23-27); Glucose Heart Surgery 126 MG/DL (74-106); Hematocrit Heart Surgery 30.4 PERCENT (42-52); Hemoglobin Heart Surgery 9.8 G/DL (14.0-18.0)
[2020-03-08 04:17] LABS: Potassium Heart/CVR 6.7 MMOL/L (3.5-5.1)
[2020-03-08] MEDS ORDERED: INSULIN REGULAR 100 UNIT/ML IV ONE (04:29)
[2020-03-08] MEDS ORDERED: SODIUM BICARBONATE 50 MEQ/50 ML VIAL IV ONE (04:29)
[2020-03-08] MEDS ORDERED: ALBUTEROL/IPRATROPIUM 3 ML NEB RESP TX ONE (04:31)
[2020-03-08 04:56] LABS: Basophils % 0.1 % (0.0-0.8); Hematocrit 28.7 VOL% (42.0-52.0); Hemoglobin 9.8 GM/DL (14.0-18.0); Immature Granulocytes % 0.8 %; Immature Granulocytes Absolute 0.13 #; Lymphocytes # 1.2 10*3/uL (1.4-4.0); Lymphocytes % 8.1 % (21.2-54.2); Mean Corpuscular HGB Conc 34.1 GM/DL (32-36); Mean Corpuscular Volume 92.9 FL (87-102); Mean Platelet Volume 11.3 FL (9.6-12.0); Monocytes % 8.1 % (1.7-12.7); Neutrophils % 82.9 % (38.7-73.9); Platelet Count 115 T/CUMM (130-400); Red Blood Count 3.09 MC/CUMM (3.8-5.5); Red Cell Distribution Width 17.1 % (9.3-17.3); White Blood Count 15.4 T/CUMM (4-12)
[2020-03-08] MEDS: DEXTROSE 50% 25 GM/50 ML VIAL IV PRN (04:59)
[2020-03-08 05:18] LABS: Albumin 3.4 G/DL (3.4-5.0); Bilirubin,Direct 0.14 MG/DL (0.0-0.20); Bilirubin,Total 0.7 MG/DL (0.2-1.0); Calcium 8.7 MG/DL (8.5-10.1); Osmolality,Calculated 289.7 MOS/KG (273-304); Total Protein 6.4 G/DL (6.4-8.3)
[2020-03-08 05:19] LABS: CKMB % 2.2 %
[2020-03-08 05:46] LABS: Troponin I 3.34 NG/ML (0.00-0.045)
[2020-03-08 06:13] LABS: ABG Base Excess -4.7 MMOL/L (-2.5-2.5); ABG HCO3 20.5 MMOL/L (20-26); ABG Oxygen Saturation 96.2 % (95-100); ABG PCO2 49.3 MM HG (35-48); ABG PH 7.266 (7.35-7.45); ABG PO2 99.4 MM HG (80-95); ABG TCO2 20.8 MMOL/L (23-27); Glucose Heart Surgery 137 MG/DL (74-106); Hematocrit Heart Surgery 29.4 PERCENT (42-52); Hemoglobin Heart Surgery 9.5 G/DL (14.0-18.0); Potassium Heart/CVR 5.2 MMOL/L (3.5-5.1)
[2020-03-08] MEDS ORDERED: HEPARIN/NACL 0.9% 2 UNITS/ML 500 ML IV ONE (06:45)
[2020-03-08] MEDS ORDERED: NITROGLYCERIN DRIP 50 MG/250 ML BOTTLE IV ONE (06:45)
[2020-03-08] MEDS ORDERED: PHENYLEPHRINE DRIP 20 MG/250 ML PREMIX IV ONE (06:45)
[2020-03-08] MEDS: INSULIN REGULAR 100 UNIT/ML SUBCUT SCH ×5 (07:44→21:28)
[2020-03-08] MEDS ORDERED: hydrOXYzine HCL 25 MG TABLET PO PRN (09:03)
[2020-03-08] MEDS ORDERED: INDOMETHACIN 25 MG CAPSULE PO PRN (09:03)
[2020-03-08] MEDS: CHLORHEXIDINE 0.12% ORAL RINSE 60 ML BOTTLE SWISH/SPIT SCH ×2 (09:15→21:28)
[2020-03-08] MEDS: SODIUM CHLORIDE 0.45% 1,000 ML IV SCH ×2 (12:00)
[2020-03-08 12:10] LABS: ABG Base Excess -3.5 MMOL/L (-2.5-2.5); ABG HCO3 22.4 MMOL/L (20-26); ABG Oxygen Saturation 95.4 % (95-100); ABG PCO2 44.3 MM HG (35-48); ABG PH 7.322 (7.35-7.45); ABG PO2 83.9 MM HG (80-95); ABG TCO2 23.8 MMOL/L (23-27); Glucose Heart Surgery 108 MG/DL (74-106); Hemoglobin Heart Surgery 10.3 G/DL (14.0-18.0); Potassium Heart/CVR 4.4 MMOL/L (3.5-5.1)
[2020-03-08] MEDS: propylthiouraciL 50 MG TABLET PO SCH (12:12)
[2020-03-08] MEDS: SEVELAMER CARBONATE 800 MG TABLET PO SCH ×2 (12:12→16:49)
[2020-03-08 13:34] LABS: CKMB % 1.7 %
[2020-03-08 13:37] LABS: Troponin I 3.96 NG/ML (0.00-0.045)
[2020-03-08] MEDS ORDERED: MAGNESIUM SULF RIDER 4 GM in PREMIX 1 EACH IV PRN (14:10)
[2020-03-08] MEDS ORDERED: POTASSIUM CHLORIDE 20 MEQ TABLET PO PRN (14:10)
[2020-03-08] MEDS ORDERED: GLUCAGON 1 MG VIAL IM PRN ×2 (14:10)
[2020-03-08] MEDS ORDERED: ONDANSETRON 4 MG/2 ML VIAL IV PRN (14:10)
[2020-03-08] MEDS ORDERED: SODIUM CHLOR 0.45% KCL 20 MEQ 20 MEQ/1,000 ML BAG IV SCH (14:10)
[2020-03-08] MEDS ORDERED: ACETAMINOPHEN 325 MG TABLET PO PRN (14:10)
[2020-03-08] MEDS ORDERED: MAGNESIUM HYDROXIDE SUSP 30 ML UDCUP PO PRN (14:10)
[2020-03-08] MEDS ORDERED: DEXTROSE 50% 25 GM/50 ML VIAL IV PRN ×2 (14:10)
[2020-03-08] MEDS ORDERED: MORPHINE 4 MG/1 ML VIAL IV PRN (14:10)
[2020-03-08] MEDS ORDERED: MAGNESIUM SULF RIDER 2 GM in PREMIX 1 EACH IV PRN (14:10)
[2020-03-08] MEDS ORDERED: ZALEPLON 5 MG CAPSULE PO PRN (14:10)
[2020-03-08] MEDS ORDERED: ALUMINUM/MAGNES/SIMETH MAX STR 30 ML UDCUP PO PRN (14:10)
[2020-03-08] MEDS ORDERED: DOCUSATE SODIUM 100 MG CAPSULE PO SCH (21:00)
[2020-03-08] MEDS: ROSUVASTATIN 20 MG TABLET PO SCH (21:22)
[2020-03-09 06:20] LABS: Basophils % 0.1 % (0.0-0.8); Hematocrit 26.8 VOL% (42.0-52.0); Immature Granulocytes % 0.8 %; Immature Granulocytes Absolute 0.12 #; Lymphocytes # 1.2 10*3/uL (1.4-4.0); Lymphocytes % 8.2 % (21.2-54.2); Mean Corpuscular HGB Conc 33.6 GM/DL (32-36); Mean Platelet Volume 11.4 FL (9.6-12.0); Monocytes % 14.1 % (1.7-12.7); NRBC # 0.02 10*3/uL; Neutrophils % 76.8 % (38.7-73.9); Platelet Count 118 T/CUMM (130-400); Red Blood Count 2.85 MC/CUMM (3.8-5.5); Red Cell Distribution Width 16.8 % (9.3-17.3); White Blood Count 14.8 T/CUMM (4-12)
[2020-03-09 06:36] LABS: Calcium 8.5 MG/DL (8.5-10.1); Osmolality,Calculated 280.2 MOS/KG (273-304)
[2020-03-09 06:48] LABS: Albumin 3.2 G/DL (3.4-5.0); Bilirubin,Direct 0.16 MG/DL (0.0-0.20); Bilirubin,Indirect 1.1 MG/DL (0.0-1.0); Bilirubin,Total 1.3 MG/DL (0.2-1.0); CKMB % 1.3 %; Calcium 8.6 MG/DL (8.5-10.1); Osmolality,Calculated 282.1 MOS/KG (273-304); Total Protein 6.5 G/DL (6.4-8.3)
[2020-03-09 06:49] LABS: Troponin I 4.01 NG/ML (0.00-0.045)
[2020-03-09] MEDS: KETOROLAC 30 MG/1 ML VIAL IV PRN ×2 (07:30→15:43)
[2020-03-09] MEDS ORDERED: ALBUTEROL/IPRATROPIUM 3 ML NEB RESP TX ONE (08:25)
[2020-03-09] MEDS: allopurinoL 300 MG TABLET PO SCH (08:43)
[2020-03-09] MEDS: SEVELAMER CARBONATE 800 MG TABLET PO SCH ×3 (08:43→18:26)
[2020-03-09] MEDS: ASPIRIN EC 81 MG TABLET PO SCH (08:43)
[2020-03-09] MEDS: FERROUS SULFATE 325 MG TABLET PO SCH (08:43)
[2020-03-09] MEDS: propylthiouraciL 50 MG TABLET PO SCH (08:43)
[2020-03-09] MEDS: FUROSEMIDE 40 MG TABLET PO SCH (08:43)
[2020-03-09] MEDS: PANTOPRAZOLE 40 MG TABLET PO SCH (08:44)
[2020-03-09] MEDS: DOCUSATE SODIUM 100 MG CAPSULE PO SCH (08:44)
[2020-03-09] MEDS: oxyCODONE/ACETAMINOPHEN 5-325 MG TABLET PO PRN (08:44)
[2020-03-09] MEDS: POLYETHYLENE GLYCOL POWDER 17 GM PACK PO SCH (08:44)
[2020-03-09] MEDS: INSULIN REGULAR 100 UNIT/ML SUBCUT SCH ×4 (08:45→21:16)
[2020-03-09] MEDS ORDERED: amLODIPine 5 MG TABLET PO SCH (09:00)
[2020-03-09] MEDS: CHLORHEXIDINE 0.12% ORAL RINSE 60 ML BOTTLE SWISH/SPIT SCH ×2 (09:55→21:16)
[2020-03-09] MEDS: ALBUTEROL/IPRATROPIUM 3 ML NEB RESP TX SCH ×2 (13:30→19:22)
[2020-03-09] MEDS: ROSUVASTATIN 20 MG TABLET PO SCH (21:16)
[2020-03-10] MEDS: ALBUTEROL/IPRATROPIUM 3 ML NEB RESP TX SCH ×4 (02:15→20:20)
[2020-03-10 06:34] LABS: Basophils % 0.2 % (0.0-0.8); Eosinophils # 0.1 10*3/uL (0.0-0.87); Eosinophils % 0.4 % (0.00-10.9); Hematocrit 23.9 VOL% (42.0-52.0); Hemoglobin 8.1 GM/DL (14.0-18.0); Immature Granulocytes % 1.2 %; Immature Granulocytes Absolute 0.14 #; Lymphocytes # 1.1 10*3/uL (1.4-4.0); Lymphocytes % 8.9 % (21.2-54.2); Mean Corpuscular HGB Conc 33.9 GM/DL (32-36); Mean Corpuscular Volume 94.1 FL (87-102); Mean Platelet Volume 11.4 FL (9.6-12.0); Monocytes % 11.4 % (1.7-12.7); NRBC # 0.03 10*3/uL; Neutrophils % 77.9 % (38.7-73.9); Platelet Count 102 T/CUMM (130-400); Red Blood Count 2.54 MC/CUMM (3.8-5.5); Red Cell Distribution Width 16.3 % (9.3-17.3)
[2020-03-10 06:56] LABS: Albumin 2.9 G/DL (3.4-5.0); Bilirubin,Direct 0.14 MG/DL (0.0-0.20); Bilirubin,Indirect 1.4 MG/DL (0.0-1.0); Bilirubin,Total 1.5 MG/DL (0.2-1.0); CKMB % 0.9 %; Calcium 8.5 MG/DL (8.5-10.1); Osmolality,Calculated 286.2 MOS/KG (273-304); Total Protein 6.4 G/DL (6.4-8.3)
[2020-03-10 06:57] LABS: Troponin I 2.95 NG/ML (0.00-0.045)
[2020-03-10] MEDS ORDERED: LACTULOSE 20 GM/30 ML UDCUP PO PRN (07:28)
[2020-03-10] MEDS: INSULIN REGULAR 100 UNIT/ML SUBCUT SCH ×4 (08:01→21:25)
[2020-03-10] MEDS: SEVELAMER CARBONATE 800 MG TABLET PO SCH ×3 (08:08→17:14)
[2020-03-10] MEDS: ASPIRIN EC 81 MG TABLET PO SCH (08:08)
[2020-03-10] MEDS: DOCUSATE SODIUM 100 MG CAPSULE PO SCH (08:08)
[2020-03-10] MEDS: propylthiouraciL 50 MG TABLET PO SCH (08:08)
[2020-03-10] MEDS: FUROSEMIDE 40 MG TABLET PO SCH (08:08)
[2020-03-10] MEDS: CHLORHEXIDINE 0.12% ORAL RINSE 60 ML BOTTLE SWISH/SPIT SCH ×2 (08:09→21:25)
[2020-03-10] MEDS: POLYETHYLENE GLYCOL POWDER 17 GM PACK PO SCH (08:09)
[2020-03-10] MEDS: allopurinoL 300 MG TABLET PO SCH (08:09)
[2020-03-10] MEDS: FERROUS SULFATE 325 MG TABLET PO SCH (08:09)
[2020-03-10] MEDS: PANTOPRAZOLE 40 MG TABLET PO SCH (08:09)
[2020-03-10] MEDS: NICOTINE 14 MG/24 HR PATCH TRANSDERM SCH (09:18)
[2020-03-10] MEDS ORDERED: TUBERCULIN SKIN TEST 0.1 ML SYRINGE INTRADERM ONE (12:00)
[2020-03-10] MEDS ORDERED: HEPARIN 10,000 UNIT/10 ML VIAL IV PRN (16:16)
[2020-03-10] MEDS: KETOROLAC 30 MG/1 ML VIAL IV PRN (19:56)
[2020-03-10] MEDS: ROSUVASTATIN 20 MG TABLET PO SCH (21:25)
[2020-03-10] MEDS: oxyCODONE/ACETAMINOPHEN 5-325 MG TABLET PO PRN (23:52)
[2020-03-11] MEDS: ALBUTEROL/IPRATROPIUM 3 ML NEB RESP TX SCH ×4 (02:05→19:08)
[2020-03-11 06:31] LABS: Basophils % 0.1 % (0.0-0.8); Eosinophils # 0.1 10*3/uL (0.0-0.87); Eosinophils % 0.9 % (0.00-10.9); Hematocrit 23.1 VOL% (42.0-52.0); Hemoglobin 7.8 GM/DL (14.0-18.0); Lymphocytes # 0.8 10*3/uL (1.4-4.0); Lymphocytes % 8.1 % (21.2-54.2); Mean Corpuscular HGB Conc 33.8 GM/DL (32-36); Mean Corpuscular Volume 94.7 FL (87-102); Mean Platelet Volume 11.3 FL (9.6-12.0); Monocytes % 12.7 % (1.7-12.7); Neutrophils % 77.2 % (38.7-73.9); Platelet Count 137 T/CUMM (130-400); Red Blood Count 2.44 MC/CUMM (3.8-5.5); Red Cell Distribution Width 15.9 % (9.3-17.3); White Blood Count 10.2 T/CUMM (4-12)
[2020-03-11 06:48] LABS: Calcium 8.5 MG/DL (8.5-10.1)
[2020-03-11] MEDS: NICOTINE 14 MG/24 HR PATCH TRANSDERM SCH (08:20)
[2020-03-11] MEDS: propylthiouraciL 50 MG TABLET PO SCH (08:21)
[2020-03-11] MEDS: SEVELAMER CARBONATE 800 MG TABLET PO SCH ×3 (08:21→16:33)
[2020-03-11] MEDS: DOCUSATE SODIUM 100 MG CAPSULE PO SCH (08:21)
[2020-03-11] MEDS: PANTOPRAZOLE 40 MG TABLET PO SCH (08:22)
[2020-03-11] MEDS: FERROUS SULFATE 325 MG TABLET PO SCH (08:22)
[2020-03-11] MEDS: ASPIRIN EC 81 MG TABLET PO SCH (08:22)
[2020-03-11] MEDS: FUROSEMIDE 40 MG TABLET PO SCH (08:22)
[2020-03-11] MEDS: CHLORHEXIDINE 0.12% ORAL RINSE 60 ML BOTTLE SWISH/SPIT SCH ×2 (08:22→21:41)
[2020-03-11] MEDS: allopurinoL 300 MG TABLET PO SCH (08:22)
[2020-03-11] MEDS: INSULIN REGULAR 100 UNIT/ML SUBCUT SCH ×4 (08:22→21:41)
[2020-03-11] MEDS: POLYETHYLENE GLYCOL POWDER 17 GM PACK PO SCH (08:22)
[2020-03-11] MEDS: carvediloL 3.125 MG TABLET PO SCH ×2 (14:42→21:40)
[2020-03-11] MEDS: oxyCODONE/ACETAMINOPHEN 5-325 MG TABLET PO PRN (16:29)
[2020-03-11] MEDS: KETOROLAC 30 MG/1 ML VIAL IV PRN (19:32)
[2020-03-11] MEDS: ROSUVASTATIN 20 MG TABLET PO SCH (21:40)
[2020-03-12] MEDS: ALBUTEROL/IPRATROPIUM 3 ML NEB RESP TX SCH ×4 (00:30→19:09)
[2020-03-12 05:47] LABS: Basophils % 0.2 % (0.0-0.8); Eosinophils # 0.1 10*3/uL (0.0-0.87); Eosinophils % 0.9 % (0.00-10.9); Hematocrit 23.1 VOL% (42.0-52.0); Hemoglobin 7.9 GM/DL (14.0-18.0); Immature Granulocytes % 0.7 %; Immature Granulocytes Absolute 0.07 #; Lymphocytes # 0.9 10*3/uL (1.4-4.0); Lymphocytes % 8.2 % (21.2-54.2); Mean Corpuscular HGB Conc 34.2 GM/DL (32-36); Mean Corpuscular Volume 92.8 FL (87-102); Mean Platelet Volume 10.4 FL (9.6-12.0); Monocytes % 11.5 % (1.7-12.7); Neutrophils % 78.5 % (38.7-73.9); Platelet Count 149 T/CUMM (130-400); Red Blood Count 2.49 MC/CUMM (3.8-5.5); Red Cell Distribution Width 15.8 % (9.3-17.3); White Blood Count 10.7 T/CUMM (4-12)
[2020-03-12 06:12] LABS: Alanine Aminotransferase 17 U/L (16-61); Albumin 2.8 G/DL (3.4-5.0); Alkaline Phosphatase 62 U/L (45-117); Aspartate Amino Transferase 14 U/L (0-37); Bilirubin,Indirect 0.2 MG/DL (0.0-1.0); Blood Urea Nitrogen 73 MG/DL (7-18); Calcium 8.7 MG/DL (8.5-10.1); Estimated Glom Filtration Rate 8 ML/MIN; Glucose 107 MG/DL (74-106); Total Protein 6.6 G/DL (6.4-8.3)
[2020-03-12] MEDS: CHLORHEXIDINE 0.12% ORAL RINSE 60 ML BOTTLE SWISH/SPIT SCH ×2 (09:10→21:24)
[2020-03-12] MEDS ORDERED: LOSARTAN 25 MG TABLET PO SCH (09:30)
[2020-03-12] MEDS ORDERED: SODIUM CHLORIDE 0.9% 1,000 ML IV PRN (09:35)
[2020-03-12] MEDS: INSULIN REGULAR 100 UNIT/ML SUBCUT SCH ×3 (11:13→15:58)
[2020-03-12] MEDS: SEVELAMER CARBONATE 800 MG TABLET PO SCH ×3 (11:14→16:51)
[2020-03-12] MEDS: propylthiouraciL 50 MG TABLET PO SCH (13:40)
[2020-03-12] MEDS: PANTOPRAZOLE 40 MG TABLET PO SCH (13:41)
[2020-03-12] MEDS: FERROUS SULFATE 325 MG TABLET PO SCH (13:42)
[2020-03-12] MEDS: DOCUSATE SODIUM 100 MG CAPSULE PO SCH (13:42)
[2020-03-12] MEDS: FUROSEMIDE 40 MG TABLET PO SCH (13:42)
[2020-03-12] MEDS: allopurinoL 300 MG TABLET PO SCH (13:42)
[2020-03-12] MEDS: POLYETHYLENE GLYCOL POWDER 17 GM PACK PO SCH (13:42)
[2020-03-12] MEDS: ASPIRIN EC 81 MG TABLET PO SCH (13:42)
[2020-03-12] MEDS: NICOTINE 14 MG/24 HR PATCH TRANSDERM SCH (13:43)
[2020-03-12] MEDS: carvediloL 3.125 MG TABLET PO SCH ×2 (13:54→21:22)
[2020-03-12] MEDS: amLODIPine 5 MG TABLET PO SCH (14:12)
[2020-03-12] MEDS: KETOROLAC 30 MG/1 ML VIAL IV PRN (20:25)
[2020-03-12] MEDS: ROSUVASTATIN 20 MG TABLET PO SCH (21:22)
[2020-03-12] MEDS: oxyCODONE/ACETAMINOPHEN 5-325 MG TABLET PO PRN (21:23)
[2020-03-13] MEDS: INSULIN REGULAR 100 UNIT/ML SUBCUT SCH ×3 (00:04→13:03)
[2020-03-13] MEDS: ALBUTEROL/IPRATROPIUM 3 ML NEB RESP TX SCH ×2 (01:35→07:38)
[2020-03-13 05:45] LABS: Basophils % 0.2 % (0.0-0.8); Eosinophils # 0.2 10*3/uL (0.0-0.87); Eosinophils % 1.7 % (0.00-10.9); Hematocrit 27.8 VOL% (42.0-52.0); Immature Granulocytes % 0.6 %; Immature Granulocytes Absolute 0.06 #; Lymphocytes # 1.1 10*3/uL (1.4-4.0); Lymphocytes % 10.5 % (21.2-54.2); Mean Corpuscular HGB Conc 33.8 GM/DL (32-36); Mean Platelet Volume 10.3 FL (9.6-12.0); Monocytes % 14.5 % (1.7-12.7); Neutrophils % 72.5 % (38.7-73.9); Platelet Count 161 T/CUMM (130-400); Red Cell Distribution Width 15.7 % (9.3-17.3); White Blood Count 10.3 T/CUMM (4-12)
[2020-03-13 05:46] LABS: Hemoglobin 9.4 GM/DL (14.0-18.0); Red Blood Count 2.99 MC/CUMM (3.8-5.5)
[2020-03-13 06:06] LABS: Calcium 8.4 MG/DL (8.5-10.1); Osmolality,Calculated 290.8 MOS/KG (273-304)
[2020-03-13 06:14] LABS: Alanine Aminotransferase 17 U/L (16-61); Albumin 2.8 G/DL (3.4-5.0); Alkaline Phosphatase 66 U/L (45-117); Aspartate Amino Transferase 17 U/L (0-37); Bilirubin,Indirect 0.4 MG/DL (0.0-1.0); Blood Urea Nitrogen 59 MG/DL (7-18); Calcium 8.8 MG/DL (8.5-10.1); Estimated Glom Filtration Rate 11 ML/MIN; Glucose 104 MG/DL (74-106); Osmolality,Calculated 289.8 MOS/KG (273-304); Total Protein 6.7 G/DL (6.4-8.3)
[2020-03-13 06:17] LABS: Troponin I 0.866 NG/ML (0.00-0.045)
[2020-03-13 08:04] VITALS: BP 129/65
[2020-03-13] MEDS: POLYETHYLENE GLYCOL POWDER 17 GM PACK PO SCH (09:45)
[2020-03-13] MEDS: SEVELAMER CARBONATE 800 MG TABLET PO SCH ×2 (09:46→13:18)
[2020-03-13] MEDS: PANTOPRAZOLE 40 MG TABLET PO SCH (09:46)
[2020-03-13] MEDS: carvediloL 3.125 MG TABLET PO SCH (09:46)
[2020-03-13] MEDS: DOCUSATE SODIUM 100 MG CAPSULE PO SCH (09:46)
[2020-03-13] MEDS: propylthiouraciL 50 MG TABLET PO SCH (09:46)
[2020-03-13] MEDS: amLODIPine 5 MG TABLET PO SCH (09:47)
[2020-03-13] MEDS: FERROUS SULFATE 325 MG TABLET PO SCH (09:47)
[2020-03-13] MEDS: FUROSEMIDE 40 MG TABLET PO SCH (09:47)
[2020-03-13] MEDS: ASPIRIN EC 81 MG TABLET PO SCH (09:47)
[2020-03-13] MEDS: CHLORHEXIDINE 0.12% ORAL RINSE 60 ML BOTTLE SWISH/SPIT SCH (09:47)
[2020-03-13] MEDS: allopurinoL 300 MG TABLET PO SCH (09:47)
[2020-03-13] MEDS: NICOTINE 14 MG/24 HR PATCH TRANSDERM SCH (09:56)
[2020-03-13] MEDS ORDERED: carvediloL 3.125 MG TABLET PO SCH (10:36)
== END 2020-03-13 14:15 | DRG 235 ==
LOC: N.EDINP 09:55 → N.ED 09:55 → N.EDINP 17:20 → N.TELES 17:50 → SUATTDRO 03-06 12:44 → N.CVR 03-07 11:54 → N.TELES 03-08 16:13
PROVIDERS: ADMIT Internal Medicine

== ENCOUNTER 2020-03-20 21:12 | Inpatient (IN) ==
[2020-03-20 22:53] LABS: Basophils % 0.3 % (0.0-0.8); Eosinophils % 0.4 % (0.00-10.9); Hematocrit 30.9 VOL% (42.0-52.0); Hemoglobin 10.1 GM/DL (14.0-18.0); Immature Granulocytes % 0.7 %; Immature Granulocytes Absolute 0.05 #; Lymphocytes # 0.9 10*3/uL (1.4-4.0); Lymphocytes % 12.1 % (21.2-54.2); Mean Corpuscular HGB Conc 32.7 GM/DL (32-36); Mean Corpuscular Volume 95.4 FL (87-102); Mean Platelet Volume 10.9 FL (9.6-12.0); Neutrophils % 74.5 % (38.7-73.9); Platelet Count 200 T/CUMM (130-400); Red Blood Count 3.24 MC/CUMM (3.8-5.5); Red Cell Distribution Width 15.6 % (9.3-17.3); White Blood Count 7.3 T/CUMM (4-12)
[2020-03-20 23:06] LABS: INR 1.1; PT Patient Result 11.4 SECS (9.8-11.9); Partial Thromboplastin Time 40.7 SECS (23.9-33.8)
[2020-03-20] MEDS ORDERED: FUROSEMIDE 40 MG/4 ML VIAL IV STA (23:08)
[2020-03-20 23:27] LABS: Albumin 2.7 G/DL (3.4-5.0); Bilirubin,Total 0.4 MG/DL (0.2-1.0); Calcium 8.3 MG/DL (8.5-10.1); Osmolality,Calculated 277.4 MOS/KG (273-304); Potassium 4.6 MMOL/L (3.5-5.1); Total Protein 6.7 G/DL (6.4-8.3)
[2020-03-21] MEDS ORDERED: DEXAMETHASONE 10 MG/1 ML VIAL IV STA (00:22)
[2020-03-21] MEDS ORDERED: MORPHINE 4 MG/1 ML VIAL IV PRN (00:41)
[2020-03-21] MEDS ORDERED: hydrALAZINE 20 MG/1 ML VIAL IV PRN (00:41)
[2020-03-21] MEDS ORDERED: NICOTINE 21 MG/24 HR PATCH TRANSDERM PRN (00:41)
[2020-03-21] MEDS ORDERED: ZALEPLON 5 MG CAPSULE PO PRN (00:41)
[2020-03-21] MEDS ORDERED: ALUMINUM/MAGNES/SIMETH MAX STR 30 ML UDCUP PO PRN (00:41)
[2020-03-21] MEDS ORDERED: GLUCAGON 1 MG VIAL IM PRN (00:41)
[2020-03-21] MEDS ORDERED: DEXTROSE 50% 25 GM/50 ML VIAL IV PRN (00:41)
[2020-03-21] MEDS ORDERED: guaiFENesin/DM ER 600-30 MG TABLET PO PRN (00:41)
[2020-03-21] MEDS ORDERED: SIMETHICONE CHEW 125 MG TABLET PO PRN (00:41)
[2020-03-21] MEDS ORDERED: AZITHROMYCIN INJ 500 MG in SODIUM CHLORIDE 0.9% 250 ML IV SCH (01:00)
[2020-03-21] MEDS: cefTRIAXone 1,000 MG in SYRINGE 1 EACH IV SCH (04:07)
[2020-03-21 05:14] LABS: Basophils % 0.4 % (0.0-0.8); Hematocrit 28.2 VOL% (42.0-52.0); Hemoglobin 9.4 GM/DL (14.0-18.0); Immature Granulocytes % 0.8 %; Immature Granulocytes Absolute 0.06 #; Lymphocytes # 0.5 10*3/uL (1.4-4.0); Lymphocytes % 6.7 % (21.2-54.2); Mean Corpuscular HGB Conc 33.3 GM/DL (32-36); Mean Corpuscular Volume 94.3 FL (87-102); Mean Platelet Volume 10.9 FL (9.6-12.0); Monocytes % 3.8 % (1.7-12.7); Neutrophils % 88.3 % (38.7-73.9); Platelet Count 207 T/CUMM (130-400); Red Blood Count 2.99 MC/CUMM (3.8-5.5); Red Cell Distribution Width 15.4 % (9.3-17.3); White Blood Count 7.8 T/CUMM (4-12)
[2020-03-21 05:25] LABS: ABG Base Excess -2.9 MMOL/L (-2.5-2.5); ABG HCO3 21.8 MMOL/L (20-26); ABG PCO2 44.2 MM HG (35-48); ABG PH 7.328 (7.35-7.45); ABG PO2 60.7 MM HG (80-95); ABG TCO2 20.8 MMOL/L (23-27); Allen Test Positive; Pt O2 Delivery Device Other
[2020-03-21 06:07] LABS: Albumin 2.6 G/DL (3.4-5.0); Bilirubin,Total 0.5 MG/DL (0.2-1.0); Calcium 8.2 MG/DL (8.5-10.1); Osmolality,Calculated 281.2 MOS/KG (273-304); Potassium 5.4 MMOL/L (3.5-5.1); Total Protein 6.1 G/DL (6.4-8.3)
[2020-03-21] MEDS: DEXAMETHASONE 10 MG/1 ML VIAL IV SCH (09:30)
[2020-03-21] MEDS: AZITHROMYCIN 250 MG TABLET PO SCH (09:31)
[2020-03-21] MEDS: ALBUTEROL INHALER 18 GM INH SCH ×4 (09:31→22:47)
[2020-03-21] MEDS: FERROUS SULFATE 325 MG TABLET PO SCH (09:31)
[2020-03-21] MEDS: carvediloL 3.125 MG TABLET PO SCH ×2 (09:31→22:30)
[2020-03-21] MEDS: amLODIPine 5 MG TABLET PO SCH (09:32)
[2020-03-21] MEDS: PANTOPRAZOLE 40 MG TABLET PO SCH (09:32)
[2020-03-21] MEDS ORDERED: SODIUM CHLORIDE 0.9% 1,000 ML IV PRN (11:34)
[2020-03-21] MEDS: ZINC GLUCONATE 50 MG TABLET PO SCH (13:36)
[2020-03-21] MEDS: ASCORBIC ACID 500 MG TABLET PO SCH ×2 (13:36→22:30)
[2020-03-21] MEDS: ENOXAPARIN 60 MG/0.6 ML SYRINGE SUBCUT SCH (13:36)
[2020-03-21] MEDS: FAMOTIDINE 20 MG TABLET PO SCH ×2 (13:36→22:30)
[2020-03-21] MEDS: CHOLECALCIFEROL 1,000 UNIT TABLET PO SCH (13:36)
[2020-03-21] MEDS: CETIRIZINE 10 MG TABLET PO SCH (13:37)
[2020-03-21] MEDS: ROSUVASTATIN 20 MG TABLET PO SCH (22:30)
[2020-03-22] MEDS: ALBUTEROL INHALER 18 GM INH SCH ×8 (01:00→22:29)
[2020-03-22] MEDS: cefTRIAXone 1,000 MG in SYRINGE 1 EACH IV SCH (02:10)
[2020-03-22 06:05] LABS: Hematocrit 27.4 VOL% (42.0-52.0); Hemoglobin 9.2 GM/DL (14.0-18.0); Immature Granulocytes % 0.8 %; Immature Granulocytes Absolute 0.08 #; Lymphocytes # 0.9 10*3/uL (1.4-4.0); Lymphocytes % 9.2 % (21.2-54.2); Mean Corpuscular HGB Conc 33.6 GM/DL (32-36); Mean Corpuscular Volume 91.9 FL (87-102); Mean Platelet Volume 11.1 FL (9.6-12.0); Monocytes % 6.1 % (1.7-12.7); Neutrophils % 83.9 % (38.7-73.9); Platelet Count 228 T/CUMM (130-400); Red Blood Count 2.98 MC/CUMM (3.8-5.5); White Blood Count 9.6 T/CUMM (4-12)
[2020-03-22 07:00] LABS: Albumin 2.5 G/DL (3.4-5.0); Bilirubin,Total 0.7 MG/DL (0.2-1.0); Calcium 8.5 MG/DL (8.5-10.1); Ferritin 2614.3 ng/ml (26-388); Osmolality,Calculated 292.2 MOS/KG (273-304); Potassium 5.3 MMOL/L (3.5-5.1); Total Protein 6.7 G/DL (6.4-8.3)
[2020-03-22 07:30] LABS: Sedimentation Rate-Westergren 63 MM/HR (0-20)
[2020-03-22] MEDS: FAMOTIDINE 20 MG TABLET PO SCH ×2 (09:54→21:40)
[2020-03-22] MEDS: AZITHROMYCIN 250 MG TABLET PO SCH (09:54)
[2020-03-22] MEDS: PANTOPRAZOLE 40 MG TABLET PO SCH (09:54)
[2020-03-22] MEDS: FERROUS SULFATE 325 MG TABLET PO SCH (09:54)
[2020-03-22] MEDS: ZINC GLUCONATE 50 MG TABLET PO SCH (09:54)
[2020-03-22] MEDS: CHOLECALCIFEROL 1,000 UNIT TABLET PO SCH (09:54)
[2020-03-22] MEDS: amLODIPine 5 MG TABLET PO SCH (09:54)
[2020-03-22] MEDS: carvediloL 3.125 MG TABLET PO SCH ×2 (09:54→21:40)
[2020-03-22] MEDS: CETIRIZINE 10 MG TABLET PO SCH (09:55)
[2020-03-22] MEDS: ASCORBIC ACID 500 MG TABLET PO SCH ×2 (09:55→21:40)
[2020-03-22] MEDS: DEXAMETHASONE 10 MG/1 ML VIAL IV SCH (09:55)
[2020-03-22] MEDS: ENOXAPARIN 60 MG/0.6 ML SYRINGE SUBCUT SCH (09:56)
[2020-03-22] MEDS: ROSUVASTATIN 20 MG TABLET PO SCH (21:39)
[2020-03-22] MEDS: BISACODYL 5 MG TABLET PO PRN (21:46)
[2020-03-23] MEDS: ALBUTEROL INHALER 18 GM INH SCH ×6 (04:59→22:48)
[2020-03-23] MEDS: cefTRIAXone 1,000 MG in SYRINGE 1 EACH IV SCH (04:59)
[2020-03-23 05:39] LABS: Basophils % 0.1 % (0.0-0.8); Hematocrit 27.5 VOL% (42.0-52.0); Hemoglobin 9.4 GM/DL (14.0-18.0); Immature Granulocytes % 0.7 %; Immature Granulocytes Absolute 0.08 #; Lymphocytes # 0.5 10*3/uL (1.4-4.0); Lymphocytes % 4.2 % (21.2-54.2); Mean Corpuscular HGB Conc 34.2 GM/DL (32-36); Mean Corpuscular Volume 91.4 FL (87-102); Mean Platelet Volume 11.1 FL (9.6-12.0); Monocytes % 5.2 % (1.7-12.7); NRBC # 0.02 10*3/uL; Neutrophils % 89.8 % (38.7-73.9); Platelet Count 230 T/CUMM (130-400); Red Blood Count 3.01 MC/CUMM (3.8-5.5); Red Cell Distribution Width 14.9 % (9.3-17.3); White Blood Count 11.4 T/CUMM (4-12)
[2020-03-23 06:11] LABS: Alanine Aminotransferase 15 U/L (16-61); Albumin 2.4 G/DL (3.4-5.0); Alkaline Phosphatase 56 U/L (45-117); Aspartate Amino Transferase 34 U/L (0-37); Bilirubin,Total < 0.39 MG/DL (0.2-1.0); Blood Urea Nitrogen 61 MG/DL (7-18); Calcium 8.2 MG/DL (8.5-10.1); Carbon Dioxide 24 MMOL/L (21-32); Estimated Glom Filtration Rate 8 ML/MIN; Ferritin 2573.1 ng/ml (26-388); Glucose 108 MG/DL (74-106); Osmolality,Calculated 285.2 MOS/KG (273-304); Potassium 5.8 MMOL/L (3.5-5.1); Sodium 134 MMOL/L (136-145); Total Protein 6.8 G/DL (6.4-8.3)
[2020-03-23 06:21] LABS: Hypochromasia 2+; Lymphocytes 2 % (20-55); Nucleated Red Blood Cells 1 (0-5); Segmented Neutrophils 97 % (50-85); Target Cells 1+; Total Cells Counted 100
[2020-03-23 06:22] LABS: Macrocytosis 1+; Platelet Estimate Normal
[2020-03-23 06:53] LABS: Sedimentation Rate-Westergren 77 MM/HR (0-20)
[2020-03-23] MEDS: ASCORBIC ACID 500 MG TABLET PO SCH ×2 (11:13→20:19)
[2020-03-23] MEDS: ZINC GLUCONATE 50 MG TABLET PO SCH (11:13)
[2020-03-23] MEDS: CETIRIZINE 10 MG TABLET PO SCH (11:13)
[2020-03-23] MEDS: amLODIPine 5 MG TABLET PO SCH (11:14)
[2020-03-23] MEDS: PANTOPRAZOLE 40 MG TABLET PO SCH (11:14)
[2020-03-23] MEDS: carvediloL 3.125 MG TABLET PO SCH ×2 (11:14→20:20)
[2020-03-23] MEDS: FERROUS SULFATE 325 MG TABLET PO SCH (11:14)
[2020-03-23] MEDS: FAMOTIDINE 20 MG TABLET PO SCH ×2 (11:14→20:20)
[2020-03-23] MEDS: DEXAMETHASONE 10 MG/1 ML VIAL IV SCH (11:15)
[2020-03-23] MEDS: ENOXAPARIN 60 MG/0.6 ML SYRINGE SUBCUT SCH (11:15)
[2020-03-23] MEDS: SODIUM POLYSTYRENE SULFATE 15 GM/60 ML BOTTLE PO SCH ×2 (11:15→20:19)
[2020-03-23] MEDS: CHOLECALCIFEROL 1,000 UNIT TABLET PO SCH (17:07)
[2020-03-23] MEDS: AZITHROMYCIN 250 MG TABLET PO SCH (17:07)
[2020-03-23] MEDS: ROSUVASTATIN 20 MG TABLET PO SCH (20:19)
[2020-03-24] MEDS: cefTRIAXone 1,000 MG in SYRINGE 1 EACH IV SCH (03:10)
[2020-03-24] MEDS: ALBUTEROL INHALER 18 GM INH SCH ×6 (03:12→23:33)
[2020-03-24 06:23] LABS: Alanine Aminotransferase 32 U/L (16-61); Albumin 2.4 G/DL (3.4-5.0); Alkaline Phosphatase 63 U/L (45-117); Aspartate Amino Transferase 43 U/L (0-37); Bilirubin,Total < 0.39 MG/DL (0.2-1.0); Blood Urea Nitrogen 84 MG/DL (7-18); Calcium 8.2 MG/DL (8.5-10.1); Carbon Dioxide 23 MMOL/L (21-32); Estimated Glom Filtration Rate 6 ML/MIN; Ferritin 2694.1 ng/ml (26-388); Glucose 118 MG/DL (74-106); Potassium 4.6 MMOL/L (3.5-5.1); Sodium 136 MMOL/L (136-145); Total Protein 6.8 G/DL (6.4-8.3)
[2020-03-24 06:37] LABS: Hematocrit 26.4 VOL% (42.0-52.0); Hemoglobin 9.2 GM/DL (14.0-18.0); Immature Granulocytes % 0.7 %; Immature Granulocytes Absolute 0.07 #; Lymphocytes # 0.5 10*3/uL (1.4-4.0); Lymphocytes % 5.5 % (21.2-54.2); Mean Corpuscular HGB Conc 34.8 GM/DL (32-36); Mean Corpuscular Volume 90.1 FL (87-102); Mean Platelet Volume 10.9 FL (9.6-12.0); Monocytes % 7.3 % (1.7-12.7); NRBC # 0.02 10*3/uL; Neutrophils % 86.5 % (38.7-73.9); Platelet Count 208 T/CUMM (130-400); Red Blood Count 2.93 MC/CUMM (3.8-5.5); Red Cell Distribution Width 14.8 % (9.3-17.3); White Blood Count 9.7 T/CUMM (4-12)
[2020-03-24 08:19] LABS: Sedimentation Rate-Westergren 102 MM/HR (0-20)
[2020-03-24] MEDS: DEXAMETHASONE 10 MG/1 ML VIAL IV SCH (10:33)
[2020-03-24] MEDS: ENOXAPARIN 60 MG/0.6 ML SYRINGE SUBCUT SCH (10:34)
[2020-03-24] MEDS: CHOLECALCIFEROL 1,000 UNIT TABLET PO SCH (10:36)
[2020-03-24] MEDS: AZITHROMYCIN 250 MG TABLET PO SCH (10:37)
[2020-03-24] MEDS: amLODIPine 5 MG TABLET PO SCH (10:37)
[2020-03-24] MEDS: ZINC GLUCONATE 50 MG TABLET PO SCH (10:37)
[2020-03-24] MEDS: FERROUS SULFATE 325 MG TABLET PO SCH (10:37)
[2020-03-24] MEDS: carvediloL 3.125 MG TABLET PO SCH ×2 (10:37→21:18)
[2020-03-24] MEDS: FAMOTIDINE 20 MG TABLET PO SCH ×2 (10:37→21:18)
[2020-03-24] MEDS: CETIRIZINE 10 MG TABLET PO SCH (10:38)
[2020-03-24] MEDS: ASCORBIC ACID 500 MG TABLET PO SCH ×2 (10:38→21:18)
[2020-03-24] MEDS: PANTOPRAZOLE 40 MG TABLET PO SCH (10:38)
[2020-03-24] MEDS: ROSUVASTATIN 20 MG TABLET PO SCH (21:17)
[2020-03-24] MEDS: ONDANSETRON 4 MG/2 ML VIAL IV PRN (23:33)
[2020-03-25] MEDS: cefTRIAXone 1,000 MG in SYRINGE 1 EACH IV SCH (03:42)
[2020-03-25] MEDS: ALBUTEROL INHALER 18 GM INH SCH ×5 (05:07→21:20)
[2020-03-25 05:22] LABS: Eosinophils % 0.1 % (0.00-10.9); Hematocrit 26.3 VOL% (42.0-52.0); Hemoglobin 8.9 GM/DL (14.0-18.0); Immature Granulocytes % 1.4 %; Immature Granulocytes Absolute 0.12 #; Lymphocytes # 0.6 10*3/uL (1.4-4.0); Lymphocytes % 6.5 % (21.2-54.2); Mean Corpuscular HGB Conc 33.8 GM/DL (32-36); Mean Corpuscular Volume 90.4 FL (87-102); Mean Platelet Volume 11.5 FL (9.6-12.0); Monocytes % 7.3 % (1.7-12.7); NRBC # 0.02 10*3/uL; Neutrophils % 84.7 % (38.7-73.9); Platelet Count 167 T/CUMM (130-400); Red Blood Count 2.91 MC/CUMM (3.8-5.5); Red Cell Distribution Width 14.7 % (9.3-17.3); White Blood Count 8.5 T/CUMM (4-12)
[2020-03-25 05:43] LABS: Hypochromasia 1+; Macrocytosis Slight; Ovalocytes Slight; Platelet Estimate Adequate
[2020-03-25 05:48] LABS: Calcium 8.1 MG/DL (8.5-10.1); Osmolality,Calculated 300.2 MOS/KG (273-304); Potassium 4.5 MMOL/L (3.5-5.1)
[2020-03-25] MEDS: DEXAMETHASONE 10 MG/1 ML VIAL IV SCH (09:05)
[2020-03-25] MEDS: AZITHROMYCIN 250 MG TABLET PO SCH (09:05)
[2020-03-25] MEDS: ASCORBIC ACID 500 MG TABLET PO SCH ×2 (09:05→21:17)
[2020-03-25] MEDS: ZINC GLUCONATE 50 MG TABLET PO SCH (09:05)
[2020-03-25] MEDS: ENOXAPARIN 60 MG/0.6 ML SYRINGE SUBCUT SCH (09:05)
[2020-03-25] MEDS: CHOLECALCIFEROL 1,000 UNIT TABLET PO SCH (09:05)
[2020-03-25] MEDS: FAMOTIDINE 20 MG TABLET PO SCH ×2 (09:05→21:18)
[2020-03-25] MEDS: FERROUS SULFATE 325 MG TABLET PO SCH (09:05)
[2020-03-25] MEDS: PANTOPRAZOLE 40 MG TABLET PO SCH (09:05)
[2020-03-25] MEDS: CETIRIZINE 10 MG TABLET PO SCH (09:05)
[2020-03-25] MEDS: carvediloL 3.125 MG TABLET PO SCH ×2 (10:19→21:18)
[2020-03-25] MEDS: amLODIPine 5 MG TABLET PO SCH (11:04)
[2020-03-25] MEDS: ROSUVASTATIN 20 MG TABLET PO SCH (21:17)
[2020-03-25] MEDS: BISACODYL 5 MG TABLET PO PRN (21:18)
[2020-03-25] MEDS: ACETAMINOPHEN 325 MG TABLET PO PRN (21:58)
[2020-03-26] MEDS: cefTRIAXone 1,000 MG in SYRINGE 1 EACH IV SCH (02:28)
[2020-03-26] MEDS: ALBUTEROL INHALER 18 GM INH SCH ×6 (05:15→23:05)
[2020-03-26 05:51] LABS: Hematocrit 27.7 VOL% (42.0-52.0); Hemoglobin 9.7 GM/DL (14.0-18.0); Immature Granulocytes % 1.3 %; Immature Granulocytes Absolute 0.14 #; Lymphocytes # 0.6 10*3/uL (1.4-4.0); Lymphocytes % 5.5 % (21.2-54.2); Mean Corpuscular Volume 89.4 FL (87-102); Monocytes % 7.4 % (1.7-12.7); NRBC # 0.02 10*3/uL; Neutrophils % 85.8 % (38.7-73.9); Platelet Count 223 T/CUMM (130-400); Red Cell Distribution Width 14.7 % (9.3-17.3)
[2020-03-26 06:16] LABS: Calcium 8.5 MG/DL (8.5-10.1); Osmolality,Calculated 289.2 MOS/KG (273-304); Potassium 4.2 MMOL/L (3.5-5.1)
[2020-03-26] MEDS: ACETAMINOPHEN 325 MG TABLET PO PRN (06:18)
[2020-03-26] MEDS: carvediloL 3.125 MG TABLET PO SCH ×2 (07:59→20:55)
[2020-03-26] MEDS: amLODIPine 5 MG TABLET PO SCH (08:00)
[2020-03-26] MEDS: ASCORBIC ACID 500 MG TABLET PO SCH ×2 (08:00→20:55)
[2020-03-26] MEDS: DEXAMETHASONE 10 MG/1 ML VIAL IV SCH (08:00)
[2020-03-26] MEDS: FERROUS SULFATE 325 MG TABLET PO SCH (08:00)
[2020-03-26] MEDS: PANTOPRAZOLE 40 MG TABLET PO SCH (08:00)
[2020-03-26] MEDS: ENOXAPARIN 60 MG/0.6 ML SYRINGE SUBCUT SCH (08:00)
[2020-03-26] MEDS: FAMOTIDINE 20 MG TABLET PO SCH ×2 (08:00→20:55)
[2020-03-26] MEDS: ZINC GLUCONATE 50 MG TABLET PO SCH (08:01)
[2020-03-26] MEDS: CHOLECALCIFEROL 1,000 UNIT TABLET PO SCH (08:01)
[2020-03-26] MEDS: CETIRIZINE 10 MG TABLET PO SCH (08:01)
[2020-03-26] MEDS: ROSUVASTATIN 20 MG TABLET PO SCH (20:55)
[2020-03-27] MEDS: cefTRIAXone 1,000 MG in SYRINGE 1 EACH IV SCH (02:30)
[2020-03-27] MEDS: ALBUTEROL INHALER 18 GM INH SCH ×6 (02:30→20:56)
[2020-03-27 05:08] LABS: Basophils % 0.1 % (0.0-0.8); Hematocrit 28.5 VOL% (42.0-52.0); Hemoglobin 9.9 GM/DL (14.0-18.0); Immature Granulocytes % 1.4 %; Immature Granulocytes Absolute 0.15 #; Lymphocytes # 0.5 10*3/uL (1.4-4.0); Lymphocytes % 4.6 % (21.2-54.2); Mean Corpuscular HGB Conc 34.7 GM/DL (32-36); Mean Corpuscular Volume 88.8 FL (87-102); Mean Platelet Volume 11.1 FL (9.6-12.0); Monocytes % 5.9 % (1.7-12.7); NRBC # 0.03 10*3/uL; Platelet Count 242 T/CUMM (130-400); Red Blood Count 3.21 MC/CUMM (3.8-5.5); Red Cell Distribution Width 14.6 % (9.3-17.3); White Blood Count 10.4 T/CUMM (4-12)
[2020-03-27 05:26] LABS: Calcium 8.6 MG/DL (8.5-10.1); Osmolality,Calculated 291.4 MOS/KG (273-304); Potassium 4.5 MMOL/L (3.5-5.1)
[2020-03-27 05:29] LABS: Lymphocytes 5 % (20-55); Platelet Estimate Adequate; Segmented Neutrophils 91 % (50-85); Total Cells Counted 100
[2020-03-27 05:30] LABS: Hypochromasia 1+; Ovalocytes Slight; Target Cells Few
[2020-03-27] MEDS: DEXAMETHASONE 10 MG/1 ML VIAL IV SCH (08:04)
[2020-03-27] MEDS: carvediloL 3.125 MG TABLET PO SCH ×2 (08:04→20:55)
[2020-03-27] MEDS: FAMOTIDINE 20 MG TABLET PO SCH ×2 (08:05→20:55)
[2020-03-27] MEDS: FERROUS SULFATE 325 MG TABLET PO SCH (08:05)
[2020-03-27] MEDS: ENOXAPARIN 60 MG/0.6 ML SYRINGE SUBCUT SCH (08:05)
[2020-03-27] MEDS: amLODIPine 5 MG TABLET PO SCH (08:05)
[2020-03-27] MEDS: CHOLECALCIFEROL 1,000 UNIT TABLET PO SCH (08:05)
[2020-03-27] MEDS: ASCORBIC ACID 500 MG TABLET PO SCH ×2 (08:05→20:54)
[2020-03-27] MEDS: PANTOPRAZOLE 40 MG TABLET PO SCH (08:05)
[2020-03-27] MEDS: ZINC GLUCONATE 50 MG TABLET PO SCH (08:06)
[2020-03-27] MEDS: CETIRIZINE 10 MG TABLET PO SCH (08:06)
[2020-03-27] MEDS ORDERED: HEPARIN 10,000 UNIT/10 ML VIAL IV PRN (14:15)
[2020-03-27] MEDS: ROSUVASTATIN 20 MG TABLET PO SCH (20:54)
[2020-03-28] MEDS: cefTRIAXone 1,000 MG in SYRINGE 1 EACH IV SCH (01:53)
[2020-03-28 06:25] LABS: Basophils % 0.1 % (0.0-0.8); Hematocrit 30.2 VOL% (42.0-52.0); Hemoglobin 10.6 GM/DL (14.0-18.0); Immature Granulocytes % 1.1 %; Immature Granulocytes Absolute 0.12 #; Lymphocytes # 0.4 10*3/uL (1.4-4.0); Lymphocytes % 3.5 % (21.2-54.2); Mean Corpuscular HGB Conc 35.1 GM/DL (32-36); Mean Corpuscular Volume 89.3 FL (87-102); Mean Platelet Volume 11.5 FL (9.6-12.0); Monocytes % 5.5 % (1.7-12.7); NRBC # 0.04 10*3/uL; Neutrophils % 89.8 % (38.7-73.9); Platelet Count 254 T/CUMM (130-400); Red Blood Count 3.38 MC/CUMM (3.8-5.5); Red Cell Distribution Width 14.9 % (9.3-17.3); White Blood Count 10.6 T/CUMM (4-12)
[2020-03-28 06:27] LABS: Calcium 8.9 MG/DL (8.5-10.1); Potassium 4.3 MMOL/L (3.5-5.1)
[2020-03-28 08:51] LABS: Anisocytosis 1+; Band Neutrophils 2 % (0-10); Hypochromasia 3+; Lymphocytes 3 % (20-55); Macrocytosis 1+; Platelet Estimate Normal; Segmented Neutrophils 90 % (50-85); Total Cells Counted 100
[2020-03-28] MEDS: carvediloL 3.125 MG TABLET PO SCH ×2 (09:39→22:27)
[2020-03-28] MEDS: PANTOPRAZOLE 40 MG TABLET PO SCH (09:39)
[2020-03-28] MEDS: ASCORBIC ACID 500 MG TABLET PO SCH ×2 (09:39→22:26)
[2020-03-28] MEDS: CETIRIZINE 10 MG TABLET PO SCH (09:39)
[2020-03-28] MEDS: FERROUS SULFATE 325 MG TABLET PO SCH (09:39)
[2020-03-28] MEDS: amLODIPine 5 MG TABLET PO SCH (09:39)
[2020-03-28] MEDS: ZINC GLUCONATE 50 MG TABLET PO SCH (09:40)
[2020-03-28] MEDS: DEXAMETHASONE 10 MG/1 ML VIAL IV SCH (09:40)
[2020-03-28] MEDS: FAMOTIDINE 20 MG TABLET PO SCH ×2 (09:40→22:27)
[2020-03-28] MEDS: ENOXAPARIN 60 MG/0.6 ML SYRINGE SUBCUT SCH (09:40)
[2020-03-28] MEDS: CHOLECALCIFEROL 1,000 UNIT TABLET PO SCH (09:40)
[2020-03-28] MEDS: ALBUTEROL INHALER 18 GM INH SCH ×7 (09:40→22:27)
[2020-03-28] MEDS: POLYETHYLENE GLYCOL POWDER 17 GM PACK PO SCH (12:28)
[2020-03-28] MEDS: ROSUVASTATIN 20 MG TABLET PO SCH (22:26)
[2020-03-28] MEDS: ACETAMINOPHEN 325 MG TABLET PO PRN (22:26)
[2020-03-29] MEDS: ALBUTEROL INHALER 18 GM INH SCH ×6 (03:35→22:35)
[2020-03-29 05:52] LABS: Calcium 8.8 MG/DL (8.5-10.1); Osmolality,Calculated 295.2 MOS/KG (273-304)
[2020-03-29 07:21] LABS: Basophils % 0.2 % (0.0-0.8); Hematocrit 37.9 VOL% (42.0-52.0); Immature Granulocytes % 1.6 %; Immature Granulocytes Absolute 0.15 #; Lymphocytes # 0.5 10*3/uL (1.4-4.0); Lymphocytes % 4.8 % (21.2-54.2); Mean Corpuscular HGB Conc 31.7 GM/DL (32-36); Mean Corpuscular Volume 96.7 FL (87-102); Mean Platelet Volume 11.6 FL (9.6-12.0); Monocytes % 5.3 % (1.7-12.7); NRBC # 0.04 10*3/uL; Neutrophils % 88.1 % (38.7-73.9); Platelet Count 264 T/CUMM (130-400); Red Blood Count 3.92 MC/CUMM (3.8-5.5); White Blood Count 9.6 T/CUMM (4-12)
[2020-03-29 09:02] LABS: Band Neutrophils 3 % (0-10); Hypochromasia 2+; Lymphocytes 7 % (20-55); Platelet Estimate Normal; Segmented Neutrophils 85 % (50-85); Total Cells Counted 100
[2020-03-29 09:03] LABS: Anisocytosis 1+; Macrocytosis 1+
[2020-03-29] MEDS: ENOXAPARIN 60 MG/0.6 ML SYRINGE SUBCUT SCH (09:51)
[2020-03-29] MEDS: carvediloL 3.125 MG TABLET PO SCH ×2 (09:52→21:57)
[2020-03-29] MEDS: FERROUS SULFATE 325 MG TABLET PO SCH (09:52)
[2020-03-29] MEDS: PANTOPRAZOLE 40 MG TABLET PO SCH (09:52)
[2020-03-29] MEDS: POLYETHYLENE GLYCOL POWDER 17 GM PACK PO SCH (09:52)
[2020-03-29] MEDS: amLODIPine 5 MG TABLET PO SCH (09:52)
[2020-03-29] MEDS: DEXAMETHASONE 10 MG/1 ML VIAL IV SCH (09:52)
[2020-03-29] MEDS: CETIRIZINE 10 MG TABLET PO SCH (09:52)
[2020-03-29] MEDS: CHOLECALCIFEROL 1,000 UNIT TABLET PO SCH (09:52)
[2020-03-29] MEDS: FAMOTIDINE 20 MG TABLET PO SCH ×2 (11:41→21:57)
[2020-03-29] MEDS: ASCORBIC ACID 500 MG TABLET PO SCH ×2 (11:41→21:57)
[2020-03-29] MEDS: ZINC GLUCONATE 50 MG TABLET PO SCH (11:41)
[2020-03-29] MEDS: PIPERACILLIN/TAZOBACTAM 3,375 MG in SODIUM CHLORIDE 0.9% 100 ML IV SCH (17:43)
[2020-03-29] MEDS: SEVELAMER CARBONATE 800 MG TABLET PO SCH (17:43)
[2020-03-29] MEDS: ROSUVASTATIN 20 MG TABLET PO SCH (21:57)
[2020-03-29] MEDS: propylthiouraciL 50 MG TABLET PO SCH (21:57)
[2020-03-30] MEDS: ALBUTEROL INHALER 18 GM INH SCH ×4 (02:11→18:05)
[2020-03-30] MEDS: PIPERACILLIN/TAZOBACTAM 3,375 MG in SODIUM CHLORIDE 0.9% 100 ML IV SCH ×2 (05:55→16:49)
[2020-03-30] MEDS: SEVELAMER CARBONATE 800 MG TABLET PO SCH ×3 (07:44→16:49)
[2020-03-30] MEDS: FERROUS SULFATE 325 MG TABLET PO SCH (08:32)
[2020-03-30] MEDS: DEXAMETHASONE 10 MG/1 ML VIAL IV SCH (08:32)
[2020-03-30] MEDS: ENOXAPARIN 60 MG/0.6 ML SYRINGE SUBCUT SCH (08:32)
[2020-03-30] MEDS: POLYETHYLENE GLYCOL POWDER 17 GM PACK PO SCH (08:32)
[2020-03-30] MEDS: carvediloL 3.125 MG TABLET PO SCH ×2 (08:32→22:02)
[2020-03-30] MEDS: allopurinoL 300 MG TABLET PO SCH (08:33)
[2020-03-30] MEDS: ZINC GLUCONATE 50 MG TABLET PO SCH (08:33)
[2020-03-30] MEDS: propylthiouraciL 50 MG TABLET PO SCH ×2 (08:33→22:01)
[2020-03-30] MEDS: amLODIPine 5 MG TABLET PO SCH (08:33)
[2020-03-30] MEDS: CHOLECALCIFEROL 1,000 UNIT TABLET PO SCH (08:33)
[2020-03-30] MEDS: FAMOTIDINE 20 MG TABLET PO SCH ×2 (08:33→22:02)
[2020-03-30] MEDS: PANTOPRAZOLE 40 MG TABLET PO SCH (08:33)
[2020-03-30] MEDS: CETIRIZINE 10 MG TABLET PO SCH (08:33)
[2020-03-30] MEDS: ASCORBIC ACID 500 MG TABLET PO SCH ×2 (08:33→22:01)
[2020-03-30] MEDS ORDERED: IBUPROFEN 600 MG TABLET PO PRN (09:47)
[2020-03-30 13:51] LABS: Basophils % 0.1 % (0.0-0.8); Hematocrit 33.3 VOL% (42.0-52.0); Hemoglobin 11.4 GM/DL (14.0-18.0); Immature Granulocytes % 1.1 %; Immature Granulocytes Absolute 0.13 #; Lymphocytes # 0.3 10*3/uL (1.4-4.0); Lymphocytes % 2.8 % (21.2-54.2); Mean Corpuscular HGB Conc 34.2 GM/DL (32-36); Mean Corpuscular Volume 90.7 FL (87-102); Mean Platelet Volume 11.4 FL (9.6-12.0); NRBC # 0.03 10*3/uL; Platelet Count 264 T/CUMM (130-400); Red Blood Count 3.67 MC/CUMM (3.8-5.5); Red Cell Distribution Width 15.3 % (9.3-17.3); White Blood Count 12.2 T/CUMM (4-12)
[2020-03-30 14:08] LABS: Albumin 2.6 G/DL (3.4-5.0); Bilirubin,Total 0.4 MG/DL (0.2-1.0); Calcium 8.9 MG/DL (8.5-10.1); Osmolality,Calculated 305.4 MOS/KG (273-304); Total Protein 7.4 G/DL (6.4-8.3)
[2020-03-30 14:16] LABS: Potassium 6.2 MMOL/L (3.5-5.1)
[2020-03-30 16:16] LABS: Lymphocytes 4 % (20-55); Metamyelocytes 1 %; Segmented Neutrophils 92 % (50-85); Total Cells Counted 100
[2020-03-30 16:17] LABS: Anisocytosis 1+; Hypochromasia 2+; Platelet Estimate Normal; Poikilocytosis 2+; Target Cells 1+
[2020-03-30] MEDS: ROSUVASTATIN 20 MG TABLET PO SCH (21:59)
[2020-03-30] MEDS: HYDROcodone/CHLORPHENIRAMINE ER 5 ML UDCUP PO SCH (22:02)
[2020-03-31] MEDS: PIPERACILLIN/TAZOBACTAM 3,375 MG in SODIUM CHLORIDE 0.9% 100 ML IV SCH ×2 (05:55→17:20)
[2020-03-31] MEDS: HYDROcodone/CHLORPHENIRAMINE ER 5 ML UDCUP PO SCH ×2 (10:00→22:32)
[2020-03-31] MEDS: propylthiouraciL 50 MG TABLET PO SCH ×2 (10:00→21:05)
[2020-03-31] MEDS: ALBUTEROL INHALER 18 GM INH SCH ×3 (10:02→18:38)
[2020-03-31] MEDS: amLODIPine 5 MG TABLET PO SCH (10:03)
[2020-03-31] MEDS: CHOLECALCIFEROL 1,000 UNIT TABLET PO SCH (10:03)
[2020-03-31] MEDS: SEVELAMER CARBONATE 800 MG TABLET PO SCH ×3 (10:03→17:20)
[2020-03-31] MEDS: CETIRIZINE 10 MG TABLET PO SCH (10:03)
[2020-03-31] MEDS: carvediloL 3.125 MG TABLET PO SCH ×2 (10:03→21:04)
[2020-03-31] MEDS: allopurinoL 300 MG TABLET PO SCH (10:03)
[2020-03-31] MEDS: ASCORBIC ACID 500 MG TABLET PO SCH ×2 (10:03→21:05)
[2020-03-31] MEDS: PANTOPRAZOLE 40 MG TABLET PO SCH (10:03)
[2020-03-31] MEDS: FAMOTIDINE 20 MG TABLET PO SCH ×2 (10:04→21:04)
[2020-03-31] MEDS: FERROUS SULFATE 325 MG TABLET PO SCH (10:04)
[2020-03-31] MEDS: POLYETHYLENE GLYCOL POWDER 17 GM PACK PO SCH (10:04)
[2020-03-31] MEDS: DEXAMETHASONE 10 MG/1 ML VIAL IV SCH (10:04)
[2020-03-31] MEDS: ENOXAPARIN 60 MG/0.6 ML SYRINGE SUBCUT SCH (10:04)
[2020-03-31] MEDS: ZINC GLUCONATE 50 MG TABLET PO SCH (10:30)
[2020-03-31] MEDS: SODIUM POLYSTYRENE SULFATE 15 GM/60 ML BOTTLE PO SCH ×2 (10:30→17:20)
[2020-03-31 10:47] LABS: Basophils % 0.1 % (0.0-0.8); Hemoglobin 11.2 GM/DL (14.0-18.0); Immature Granulocytes % 0.9 %; Immature Granulocytes Absolute 0.12 #; Lymphocytes # 0.7 10*3/uL (1.4-4.0); Lymphocytes % 5.2 % (21.2-54.2); Mean Corpuscular Volume 88.4 FL (87-102); Mean Platelet Volume 11.2 FL (9.6-12.0); Monocytes % 7.1 % (1.7-12.7); Neutrophils % 86.7 % (38.7-73.9); Platelet Count 242 T/CUMM (130-400); Red Blood Count 3.62 MC/CUMM (3.8-5.5); Red Cell Distribution Width 15.1 % (9.3-17.3)
[2020-03-31 11:09] LABS: Albumin 2.6 G/DL (3.4-5.0); Bilirubin,Total 0.6 MG/DL (0.2-1.0); Calcium 8.5 MG/DL (8.5-10.1); Osmolality,Calculated 299.4 MOS/KG (273-304); Total Protein 6.5 G/DL (6.4-8.3)
[2020-03-31 11:18] LABS: Potassium 6.5 MMOL/L (3.5-5.1)
[2020-03-31] MEDS ORDERED: SODIUM POLYSTYRENE SULFATE 15 GM/60 ML BOTTLE PO SCH (17:30)
[2020-03-31] MEDS: ROSUVASTATIN 20 MG TABLET PO SCH (21:05)
[2020-03-31] MEDS ORDERED: NITROGLYCERIN SL 0.4 MG TABLET SL ONE (23:13)
[2020-03-31] MEDS ORDERED: MORPHINE 4 MG/1 ML VIAL ONE (23:15)
[2020-03-31] MEDS ORDERED: MORPHINE 4 MG/1 ML VIAL IV ONE (23:16)
[2020-03-31] MEDS ORDERED: NITROGLYCERIN 2% OINT 1 INCH/GM PACK TOP ONE (23:16)
[2020-03-31] MEDS ORDERED: ASPIRIN 325 MG TABLET PO ONE (23:16)
[2020-03-31] MEDS ORDERED: ASPIRIN CHEW 81 MG TABLET PO ONE (23:17)
[2020-03-31] MEDS ORDERED: METOPROLOL TARTRATE 5 MG/5 ML VIAL IV ONE (23:17)
[2020-03-31] MEDS ORDERED: METOPROLOL TARTRATE 25 MG TABLET ONE (23:28)
[2020-03-31] MEDS: METOPROLOL TARTRATE 25 MG TABLET PO SCH (23:30)
[2020-04-01 00:01] LABS: CKMB % 4.6 %; Calcium 8.8 MG/DL (8.5-10.1); Osmolality,Calculated 312.8 MOS/KG (273-304); Potassium 4.6 MMOL/L (3.5-5.1)
[2020-04-01 00:03] LABS: Troponin I 0.334 NG/ML (0.00-0.045)
[2020-04-01 02:09] LABS: Troponin I 0.327 NG/ML (0.00-0.045)
[2020-04-01 05:42] LABS: Hematocrit 31.8 VOL% (42.0-52.0); Hemoglobin 11.1 GM/DL (14.0-18.0); Immature Granulocytes % 0.9 %; Lymphocytes # 0.4 10*3/uL (1.4-4.0); Mean Corpuscular HGB Conc 34.9 GM/DL (32-36); Mean Corpuscular Volume 88.8 FL (87-102); Mean Platelet Volume 11.8 FL (9.6-12.0); Monocytes % 7.6 % (1.7-12.7); Neutrophils % 87.5 % (38.7-73.9); Platelet Count 257 T/CUMM (130-400); Red Blood Count 3.58 MC/CUMM (3.8-5.5)
[2020-04-01] MEDS: PIPERACILLIN/TAZOBACTAM 3,375 MG in SODIUM CHLORIDE 0.9% 100 ML IV SCH ×2 (05:44→17:15)
[2020-04-01 05:58] LABS: Albumin 2.6 G/DL (3.4-5.0); Bilirubin,Total 0.6 MG/DL (0.2-1.0); Calcium 8.8 MG/DL (8.5-10.1); Osmolality,Calculated 318.5 MOS/KG (273-304); Potassium 4.4 MMOL/L (3.5-5.1); Total Protein 7.1 G/DL (6.4-8.3)
[2020-04-01 06:00] LABS: Troponin I 0.331 NG/ML (0.00-0.045)
[2020-04-01] MEDS: ALBUTEROL INHALER 18 GM INH SCH ×3 (06:12→20:18)
[2020-04-01 06:13] LABS: Hypochromasia 1+; Lymphocytes 1 % (20-55); Microcytosis 1+; Platelet Estimate Adequate; Segmented Neutrophils 95 % (50-85); Total Cells Counted 100
[2020-04-01] MEDS: allopurinoL 300 MG TABLET PO SCH (09:30)
[2020-04-01] MEDS: SEVELAMER CARBONATE 800 MG TABLET PO SCH ×3 (09:30→17:15)
[2020-04-01] MEDS: DEXAMETHASONE 10 MG/1 ML VIAL IV SCH (09:31)
[2020-04-01] MEDS: propylthiouraciL 50 MG TABLET PO SCH ×2 (09:31→20:18)
[2020-04-01] MEDS: amLODIPine 5 MG TABLET PO SCH (09:31)
[2020-04-01] MEDS: FERROUS SULFATE 325 MG TABLET PO SCH (09:31)
[2020-04-01] MEDS: PANTOPRAZOLE 40 MG TABLET PO SCH (09:31)
[2020-04-01] MEDS: ASCORBIC ACID 500 MG TABLET PO SCH ×2 (09:32→20:18)
[2020-04-01] MEDS: FAMOTIDINE 20 MG TABLET PO SCH ×2 (09:32→20:19)
[2020-04-01] MEDS: ENOXAPARIN 60 MG/0.6 ML SYRINGE SUBCUT SCH (09:32)
[2020-04-01] MEDS: POLYETHYLENE GLYCOL POWDER 17 GM PACK PO SCH (09:32)
[2020-04-01] MEDS: METOPROLOL TARTRATE 25 MG TABLET PO SCH (09:32)
[2020-04-01] MEDS: CHOLECALCIFEROL 1,000 UNIT TABLET PO SCH (09:33)
[2020-04-01] MEDS: CETIRIZINE 10 MG TABLET PO SCH (09:33)
[2020-04-01] MEDS: ZINC GLUCONATE 50 MG TABLET PO SCH (09:33)
[2020-04-01] MEDS: HYDROcodone/CHLORPHENIRAMINE ER 5 ML UDCUP PO SCH ×2 (09:33→20:19)
[2020-04-01] MEDS: ONDANSETRON 4 MG/2 ML VIAL IV PRN ×2 (12:15→20:53)
[2020-04-01] MEDS: METOPROLOL TARTRATE 5 MG/5 ML VIAL IV SCH ×2 (14:36→16:20)
[2020-04-01 15:37] LABS: CKMB % 9.3 %; Troponin I 0.337 NG/ML (0.00-0.045)
[2020-04-01] MEDS: APIXABAN 2.5 MG TABLET PO SCH ×2 (16:21→20:18)
[2020-04-01] MEDS: METOPROLOL TARTRATE 50 MG TABLET PO SCH (20:19)
[2020-04-01] MEDS: ROSUVASTATIN 20 MG TABLET PO SCH (20:19)
[2020-04-02] MEDS: ONDANSETRON 4 MG/2 ML VIAL IV PRN (02:19)
[2020-04-02] MEDS: ACETAMINOPHEN 325 MG TABLET PO PRN (02:19)
[2020-04-02] MEDS: PIPERACILLIN/TAZOBACTAM 3,375 MG in SODIUM CHLORIDE 0.9% 100 ML IV SCH ×2 (05:09→16:45)
[2020-04-02] MEDS: ALBUTEROL INHALER 18 GM INH SCH ×3 (06:01→20:00)
[2020-04-02] MEDS ORDERED: METOPROLOL TARTRATE 5 MG/5 ML VIAL IV ONE (07:50)
[2020-04-02] MEDS: METOPROLOL TARTRATE 50 MG TABLET PO SCH ×2 (08:06→20:00)
[2020-04-02] MEDS: SEVELAMER CARBONATE 800 MG TABLET PO SCH ×3 (09:30→16:44)
[2020-04-02 10:19] LABS: Basophils % 0.1 % (0.0-0.8); Hematocrit 33.4 VOL% (42.0-52.0); Hemoglobin 11.6 GM/DL (14.0-18.0); Immature Granulocytes % 0.6 %; Immature Granulocytes Absolute 0.11 #; Lymphocytes # 0.6 10*3/uL (1.4-4.0); Lymphocytes % 3.4 % (21.2-54.2); Mean Corpuscular HGB Conc 34.7 GM/DL (32-36); Mean Corpuscular Volume 88.6 FL (87-102); Mean Platelet Volume 11.5 FL (9.6-12.0); Monocytes % 6.1 % (1.7-12.7); Neutrophils % 89.8 % (38.7-73.9); Platelet Count 244 T/CUMM (130-400); Red Blood Count 3.77 MC/CUMM (3.8-5.5); Red Cell Distribution Width 15.1 % (9.3-17.3); White Blood Count 17.4 T/CUMM (4-12)
[2020-04-02 10:39] LABS: Hypochromasia 1+; Lymphocytes 3 % (20-55); Microcytosis 1+; Platelet Estimate Adequate; Segmented Neutrophils 91 % (50-85); Target Cells Slight; Total Cells Counted 100
[2020-04-02 10:54] LABS: Albumin 3.1 G/DL (3.4-5.0); Bilirubin,Total 0.7 MG/DL (0.2-1.0); Calcium 8.8 MG/DL (8.5-10.1); Osmolality,Calculated 290.8 MOS/KG (273-304); Potassium 3.7 MMOL/L (3.5-5.1); Total Protein 8.1 G/DL (6.4-8.3)
[2020-04-02] MEDS: DEXAMETHASONE 10 MG/1 ML VIAL IV SCH (13:30)
[2020-04-02] MEDS: HYDROcodone/CHLORPHENIRAMINE ER 5 ML UDCUP PO SCH ×2 (13:30→20:00)
[2020-04-02] MEDS: CHOLECALCIFEROL 1,000 UNIT TABLET PO SCH (13:30)
[2020-04-02] MEDS: POLYETHYLENE GLYCOL POWDER 17 GM PACK PO SCH (13:31)
[2020-04-02] MEDS: propylthiouraciL 50 MG TABLET PO SCH ×2 (13:31→20:00)
[2020-04-02] MEDS: ZINC GLUCONATE 50 MG TABLET PO SCH (13:32)
[2020-04-02] MEDS: FAMOTIDINE 20 MG TABLET PO SCH ×2 (13:32→20:00)
[2020-04-02] MEDS: AMIODARONE 200 MG TABLET PO SCH ×2 (13:32→20:00)
[2020-04-02] MEDS: PANTOPRAZOLE 40 MG TABLET PO SCH (13:32)
[2020-04-02] MEDS: allopurinoL 300 MG TABLET PO SCH (13:32)
[2020-04-02] MEDS: ASCORBIC ACID 500 MG TABLET PO SCH ×2 (13:32→20:00)
[2020-04-02] MEDS: FERROUS SULFATE 325 MG TABLET PO SCH (13:33)
[2020-04-02] MEDS: amLODIPine 5 MG TABLET PO SCH (13:33)
[2020-04-02] MEDS: CETIRIZINE 10 MG TABLET PO SCH (13:33)
[2020-04-02] MEDS: APIXABAN 2.5 MG TABLET PO SCH ×2 (13:33→20:00)
[2020-04-02] MEDS: ROSUVASTATIN 20 MG TABLET PO SCH (20:00)
[2020-04-03] MEDS: PIPERACILLIN/TAZOBACTAM 3,375 MG in SODIUM CHLORIDE 0.9% 100 ML IV SCH ×2 (04:05→18:12)
[2020-04-03 04:40] LABS: Basophils % 0.1 % (0.0-0.8); Hematocrit 31.2 VOL% (42.0-52.0); Hemoglobin 10.4 GM/DL (14.0-18.0); Immature Granulocytes % 0.7 %; Immature Granulocytes Absolute 0.11 #; Lymphocytes # 0.4 10*3/uL (1.4-4.0); Lymphocytes % 2.6 % (21.2-54.2); Mean Corpuscular HGB Conc 33.3 GM/DL (32-36); Monocytes % 5.6 % (1.7-12.7); Platelet Count 204 T/CUMM (130-400); Red Blood Count 3.43 MC/CUMM (3.8-5.5); Red Cell Distribution Width 15.3 % (9.3-17.3)
[2020-04-03 04:59] LABS: Albumin 2.6 G/DL (3.4-5.0); Bilirubin,Total 0.8 MG/DL (0.2-1.0); Calcium 8.6 MG/DL (8.5-10.1); Osmolality,Calculated 295.8 MOS/KG (273-304); Potassium 4.5 MMOL/L (3.5-5.1); Total Protein 6.7 G/DL (6.4-8.3)
[2020-04-03 05:08] LABS: Hypochromasia 1+; Lymphocytes 3 % (20-55); Platelet Estimate Adequate; Segmented Neutrophils 90 % (50-85); Target Cells Slight; Total Cells Counted 100
[2020-04-03 05:09] LABS: Microcytosis 1+
[2020-04-03] MEDS: ALBUTEROL INHALER 18 GM INH SCH ×4 (06:18→18:14)
[2020-04-03] MEDS: allopurinoL 300 MG TABLET PO SCH (09:35)
[2020-04-03] MEDS: ASCORBIC ACID 500 MG TABLET PO SCH ×2 (09:35→20:35)
[2020-04-03] MEDS: amLODIPine 5 MG TABLET PO SCH (09:36)
[2020-04-03] MEDS: CHOLECALCIFEROL 1,000 UNIT TABLET PO SCH (09:36)
[2020-04-03] MEDS: CETIRIZINE 10 MG TABLET PO SCH (09:36)
[2020-04-03] MEDS: SEVELAMER CARBONATE 800 MG TABLET PO SCH ×3 (09:36→18:14)
[2020-04-03] MEDS: FAMOTIDINE 20 MG TABLET PO SCH ×2 (09:37→20:35)
[2020-04-03] MEDS: APIXABAN 2.5 MG TABLET PO SCH ×2 (09:37→20:35)
[2020-04-03] MEDS: PANTOPRAZOLE 40 MG TABLET PO SCH (09:37)
[2020-04-03] MEDS: METOPROLOL TARTRATE 50 MG TABLET PO SCH ×2 (09:37→20:35)
[2020-04-03] MEDS: propylthiouraciL 50 MG TABLET PO SCH ×2 (09:37→20:35)
[2020-04-03] MEDS: FERROUS SULFATE 325 MG TABLET PO SCH (09:37)
[2020-04-03] MEDS: AMIODARONE 200 MG TABLET PO SCH ×2 (09:37→20:35)
[2020-04-03] MEDS: POLYETHYLENE GLYCOL POWDER 17 GM PACK PO SCH (09:38)
[2020-04-03] MEDS: HYDROcodone/CHLORPHENIRAMINE ER 5 ML UDCUP PO SCH ×2 (09:38→20:35)
[2020-04-03] MEDS: DEXAMETHASONE 10 MG/1 ML VIAL IV SCH (09:38)
[2020-04-03] MEDS: ZINC GLUCONATE 50 MG TABLET PO SCH (11:29)
[2020-04-03] MEDS: ROSUVASTATIN 20 MG TABLET PO SCH (20:35)
[2020-04-04] MEDS: PIPERACILLIN/TAZOBACTAM 3,375 MG in SODIUM CHLORIDE 0.9% 100 ML IV SCH ×2 (04:53→16:52)
[2020-04-04] MEDS: ALBUTEROL INHALER 18 GM INH SCH ×3 (06:33→20:32)
[2020-04-04] MEDS: SEVELAMER CARBONATE 800 MG TABLET PO SCH ×3 (09:13→16:52)
[2020-04-04] MEDS: AMIODARONE 200 MG TABLET PO SCH ×2 (09:13→20:31)
[2020-04-04] MEDS: ASCORBIC ACID 500 MG TABLET PO SCH ×2 (09:14→20:31)
[2020-04-04] MEDS: FAMOTIDINE 20 MG TABLET PO SCH ×2 (09:14→20:31)
[2020-04-04] MEDS: HYDROcodone/CHLORPHENIRAMINE ER 5 ML UDCUP PO SCH ×2 (09:14→20:31)
[2020-04-04] MEDS: CETIRIZINE 10 MG TABLET PO SCH (09:14)
[2020-04-04] MEDS: propylthiouraciL 50 MG TABLET PO SCH ×2 (09:14→20:31)
[2020-04-04] MEDS: APIXABAN 2.5 MG TABLET PO SCH ×2 (09:14→20:31)
[2020-04-04] MEDS: ZINC GLUCONATE 50 MG TABLET PO SCH (09:14)
[2020-04-04] MEDS: amLODIPine 5 MG TABLET PO SCH (09:14)
[2020-04-04] MEDS: METOPROLOL TARTRATE 50 MG TABLET PO SCH ×2 (09:14→20:32)
[2020-04-04] MEDS: CHOLECALCIFEROL 1,000 UNIT TABLET PO SCH (09:14)
[2020-04-04] MEDS: allopurinoL 300 MG TABLET PO SCH (09:14)
[2020-04-04] MEDS: POLYETHYLENE GLYCOL POWDER 17 GM PACK PO SCH (09:14)
[2020-04-04] MEDS: DEXAMETHASONE 10 MG/1 ML VIAL IV SCH (09:14)
[2020-04-04] MEDS: PANTOPRAZOLE 40 MG TABLET PO SCH (09:14)
[2020-04-04] MEDS: FERROUS SULFATE 325 MG TABLET PO SCH (09:14)
[2020-04-04] MEDS: ROSUVASTATIN 20 MG TABLET PO SCH (20:31)
[2020-04-05] MEDS: PIPERACILLIN/TAZOBACTAM 3,375 MG in SODIUM CHLORIDE 0.9% 100 ML IV SCH ×2 (05:10→16:58)
[2020-04-05 06:03] LABS: Basophils % 0.1 % (0.0-0.8); Hematocrit 27.8 VOL% (42.0-52.0); Hemoglobin 9.5 GM/DL (14.0-18.0); Immature Granulocytes Absolute 0.15 #; Lymphocytes # 0.6 10*3/uL (1.4-4.0); Lymphocytes % 4.1 % (21.2-54.2); Mean Corpuscular HGB Conc 34.2 GM/DL (32-36); Mean Corpuscular Volume 88.3 FL (87-102); Mean Platelet Volume 11.5 FL (9.6-12.0); Monocytes % 6.4 % (1.7-12.7); NRBC # 0.02 10*3/uL; Neutrophils % 88.4 % (38.7-73.9); Platelet Count 170 T/CUMM (130-400); Red Blood Count 3.15 MC/CUMM (3.8-5.5); White Blood Count 15.2 T/CUMM (4-12)
[2020-04-05 06:21] LABS: Albumin 2.4 G/DL (3.4-5.0); Bilirubin,Total 0.7 MG/DL (0.2-1.0); Calcium 8.6 MG/DL (8.5-10.1); Osmolality,Calculated 295.1 MOS/KG (273-304); Potassium 4.4 MMOL/L (3.5-5.1); Total Protein 6.4 G/DL (6.4-8.3)
[2020-04-05 06:33] LABS: Hypochromasia 1+; Lymphocytes 3 % (20-55); Microcytosis 1+; Platelet Estimate Adequate; Segmented Neutrophils 87 % (50-85); Total Cells Counted 100
[2020-04-05] MEDS: ALBUTEROL INHALER 18 GM INH SCH ×3 (08:04→20:47)
[2020-04-05] MEDS: SEVELAMER CARBONATE 800 MG TABLET PO SCH ×3 (08:04→16:58)
[2020-04-05] MEDS: FERROUS SULFATE 325 MG TABLET PO SCH (08:04)
[2020-04-05] MEDS: DEXAMETHASONE 10 MG/1 ML VIAL IV SCH (08:04)
[2020-04-05] MEDS: AMIODARONE 200 MG TABLET PO SCH ×2 (08:04→20:46)
[2020-04-05] MEDS: APIXABAN 2.5 MG TABLET PO SCH ×2 (08:04→20:47)
[2020-04-05] MEDS: FAMOTIDINE 20 MG TABLET PO SCH ×2 (08:05→20:45)
[2020-04-05] MEDS: amLODIPine 5 MG TABLET PO SCH (08:05)
[2020-04-05] MEDS: HYDROcodone/CHLORPHENIRAMINE ER 5 ML UDCUP PO SCH ×2 (08:05→20:47)
[2020-04-05] MEDS: ZINC GLUCONATE 50 MG TABLET PO SCH (08:05)
[2020-04-05] MEDS: allopurinoL 300 MG TABLET PO SCH (08:05)
[2020-04-05] MEDS: propylthiouraciL 50 MG TABLET PO SCH ×2 (08:05→20:46)
[2020-04-05] MEDS: ASCORBIC ACID 500 MG TABLET PO SCH ×2 (08:05→20:46)
[2020-04-05] MEDS: POLYETHYLENE GLYCOL POWDER 17 GM PACK PO SCH (08:05)
[2020-04-05] MEDS: CHOLECALCIFEROL 1,000 UNIT TABLET PO SCH (08:05)
[2020-04-05] MEDS: PANTOPRAZOLE 40 MG TABLET PO SCH (08:05)
[2020-04-05] MEDS: METOPROLOL TARTRATE 50 MG TABLET PO SCH ×2 (08:05→20:47)
[2020-04-05] MEDS: CETIRIZINE 10 MG TABLET PO SCH (08:06)
[2020-04-05] MEDS: ROSUVASTATIN 20 MG TABLET PO SCH (20:46)
[2020-04-06 05:11] LABS: Basophils % 0.1 % (0.0-0.8); Hematocrit 31.1 VOL% (42.0-52.0); Hemoglobin 10.9 GM/DL (14.0-18.0); Immature Granulocytes Absolute 0.15 #; Lymphocytes # 0.7 10*3/uL (1.4-4.0); Lymphocytes % 4.7 % (21.2-54.2); Mean Corpuscular Volume 87.9 FL (87-102); Mean Platelet Volume 12.8 FL (9.6-12.0); Monocytes % 7.3 % (1.7-12.7); NRBC # 0.02 10*3/uL; Neutrophils % 86.9 % (38.7-73.9); Platelet Count 145 T/CUMM (130-400); Red Blood Count 3.54 MC/CUMM (3.8-5.5); Red Cell Distribution Width 14.8 % (9.3-17.3)
[2020-04-06 06:00] LABS: Albumin 2.4 G/DL (3.4-5.0); Bilirubin,Total 0.8 MG/DL (0.2-1.0); Calcium 8.3 MG/DL (8.5-10.1); Osmolality,Calculated 287.2 MOS/KG (273-304); Potassium 4.6 MMOL/L (3.5-5.1); Total Protein 6.5 G/DL (6.4-8.3)
[2020-04-06 06:06] LABS: Hypochromasia Slight; Lymphocytes 10 % (20-55); Microcytosis 1+; Platelet Estimate Adequate; Segmented Neutrophils 80 % (50-85); Total Cells Counted 100
[2020-04-06] MEDS: SEVELAMER CARBONATE 800 MG TABLET PO SCH ×3 (08:32→17:22)
[2020-04-06] MEDS: ALBUTEROL INHALER 18 GM INH SCH ×3 (08:32→20:10)
[2020-04-06] MEDS: DEXAMETHASONE 10 MG/1 ML VIAL IV SCH (08:33)
[2020-04-06] MEDS: APIXABAN 2.5 MG TABLET PO SCH ×2 (08:33→20:10)
[2020-04-06] MEDS: FERROUS SULFATE 325 MG TABLET PO SCH (08:34)
[2020-04-06] MEDS: POLYETHYLENE GLYCOL POWDER 17 GM PACK PO SCH (08:34)
[2020-04-06] MEDS: FAMOTIDINE 20 MG TABLET PO SCH ×2 (08:34→20:10)
[2020-04-06] MEDS: amLODIPine 5 MG TABLET PO SCH (08:34)
[2020-04-06] MEDS: METOPROLOL TARTRATE 50 MG TABLET PO SCH ×2 (08:34→21:10)
[2020-04-06] MEDS: CHOLECALCIFEROL 1,000 UNIT TABLET PO SCH (08:35)
[2020-04-06] MEDS: ZINC GLUCONATE 50 MG TABLET PO SCH (08:35)
[2020-04-06] MEDS: HYDROcodone/CHLORPHENIRAMINE ER 5 ML UDCUP PO SCH ×2 (08:35→20:10)
[2020-04-06] MEDS: propylthiouraciL 50 MG TABLET PO SCH ×2 (08:35→20:10)
[2020-04-06] MEDS: ASCORBIC ACID 500 MG TABLET PO SCH ×2 (08:35→20:10)
[2020-04-06] MEDS: allopurinoL 300 MG TABLET PO SCH (08:35)
[2020-04-06] MEDS: PANTOPRAZOLE 40 MG TABLET PO SCH (08:35)
[2020-04-06] MEDS: AMIODARONE 200 MG TABLET PO SCH ×2 (08:36→20:10)
[2020-04-06] MEDS: CETIRIZINE 10 MG TABLET PO SCH (08:37)
[2020-04-06] MEDS: ROSUVASTATIN 20 MG TABLET PO SCH (20:10)
[2020-04-07 05:25] LABS: Basophils % 0.1 % (0.0-0.8); Hematocrit 29.8 VOL% (42.0-52.0); Hemoglobin 10.1 GM/DL (14.0-18.0); Immature Granulocytes % 1.5 %; Immature Granulocytes Absolute 0.23 #; Lymphocytes # 0.8 10*3/uL (1.4-4.0); Lymphocytes % 5.2 % (21.2-54.2); Mean Corpuscular HGB Conc 33.9 GM/DL (32-36); Mean Corpuscular Volume 88.2 FL (87-102); Mean Platelet Volume 11.8 FL (9.6-12.0); Monocytes % 7.2 % (1.7-12.7); NRBC # 0.03 10*3/uL; Platelet Count 185 T/CUMM (130-400); Red Blood Count 3.38 MC/CUMM (3.8-5.5); White Blood Count 15.7 T/CUMM (4-12)
[2020-04-07 05:53] LABS: Albumin 2.6 G/DL (3.4-5.0); Bilirubin,Total 1.1 MG/DL (0.2-1.0); Calcium 8.3 MG/DL (8.5-10.1); Osmolality,Calculated 296.2 MOS/KG (273-304); Potassium 5.4 MMOL/L (3.5-5.1); Total Protein 6.7 G/DL (6.4-8.3)
[2020-04-07] MEDS: ALBUTEROL INHALER 18 GM INH SCH ×3 (07:01→21:39)
[2020-04-07] MEDS: DEXAMETHASONE 10 MG/1 ML VIAL IV SCH (10:08)
[2020-04-07] MEDS: CHOLECALCIFEROL 1,000 UNIT TABLET PO SCH (10:09)
[2020-04-07] MEDS: SEVELAMER CARBONATE 800 MG TABLET PO SCH ×3 (10:09→17:09)
[2020-04-07] MEDS: FERROUS SULFATE 325 MG TABLET PO SCH (10:10)
[2020-04-07] MEDS: APIXABAN 2.5 MG TABLET PO SCH ×2 (10:10→20:53)
[2020-04-07] MEDS: ZINC GLUCONATE 50 MG TABLET PO SCH (10:10)
[2020-04-07] MEDS: ASCORBIC ACID 500 MG TABLET PO SCH ×2 (10:10→20:53)
[2020-04-07] MEDS: PANTOPRAZOLE 40 MG TABLET PO SCH (10:10)
[2020-04-07] MEDS: amLODIPine 5 MG TABLET PO SCH (10:10)
[2020-04-07] MEDS: allopurinoL 300 MG TABLET PO SCH (10:10)
[2020-04-07] MEDS: CETIRIZINE 10 MG TABLET PO SCH (10:11)
[2020-04-07] MEDS: METOPROLOL TARTRATE 50 MG TABLET PO SCH ×2 (10:11→20:53)
[2020-04-07] MEDS: AMIODARONE 200 MG TABLET PO SCH ×2 (10:11→20:53)
[2020-04-07] MEDS: FAMOTIDINE 20 MG TABLET PO SCH ×2 (10:11→20:53)
[2020-04-07] MEDS: POLYETHYLENE GLYCOL POWDER 17 GM PACK PO SCH (10:11)
[2020-04-07] MEDS: propylthiouraciL 50 MG TABLET PO SCH ×2 (13:09→20:53)
[2020-04-07] MEDS: ROSUVASTATIN 20 MG TABLET PO SCH (20:53)
[2020-04-08 05:46] LABS: Basophils % 0.1 % (0.0-0.8); Hematocrit 28.5 VOL% (42.0-52.0); Hemoglobin 9.9 GM/DL (14.0-18.0); Immature Granulocytes % 1.3 %; Lymphocytes # 0.8 10*3/uL (1.4-4.0); Lymphocytes % 5.4 % (21.2-54.2); Mean Corpuscular HGB Conc 34.7 GM/DL (32-36); Mean Corpuscular Volume 88.2 FL (87-102); NRBC # 0.04 10*3/uL; Neutrophils % 87.2 % (38.7-73.9); Platelet Count 194 T/CUMM (130-400); Red Blood Count 3.23 MC/CUMM (3.8-5.5); White Blood Count 14.9 T/CUMM (4-12)
[2020-04-08 06:11] LABS: Albumin 2.5 G/DL (3.4-5.0); Bilirubin,Total 1.2 MG/DL (0.2-1.0); Calcium 8.5 MG/DL (8.5-10.1); Osmolality,Calculated 300.8 MOS/KG (273-304); Total Protein 6.7 G/DL (6.4-8.3)
[2020-04-08 06:19] LABS: Potassium 6.2 MMOL/L (3.5-5.1)
[2020-04-08] MEDS: ALBUTEROL INHALER 18 GM INH SCH ×3 (07:30→19:18)
[2020-04-08] MEDS ORDERED: SODIUM POLYSTYRENE SULFATE 15 GM/60 ML BOTTLE PO ONE (07:41)
[2020-04-08] MEDS: METOPROLOL TARTRATE 50 MG TABLET PO SCH ×2 (10:40→21:02)
[2020-04-08] MEDS: amLODIPine 5 MG TABLET PO SCH (10:40)
[2020-04-08] MEDS: PANTOPRAZOLE 40 MG TABLET PO SCH (10:42)
[2020-04-08] MEDS: ZINC GLUCONATE 50 MG TABLET PO SCH (10:42)
[2020-04-08] MEDS: CHOLECALCIFEROL 1,000 UNIT TABLET PO SCH (10:42)
[2020-04-08] MEDS: CETIRIZINE 10 MG TABLET PO SCH (10:42)
[2020-04-08] MEDS: SEVELAMER CARBONATE 800 MG TABLET PO SCH ×3 (10:42→17:19)
[2020-04-08] MEDS: propylthiouraciL 50 MG TABLET PO SCH ×2 (10:42→21:02)
[2020-04-08] MEDS: FAMOTIDINE 20 MG TABLET PO SCH ×2 (10:43→21:02)
[2020-04-08] MEDS: ASCORBIC ACID 500 MG TABLET PO SCH ×2 (10:43→21:02)
[2020-04-08] MEDS: APIXABAN 2.5 MG TABLET PO SCH ×2 (10:43→21:02)
[2020-04-08] MEDS: allopurinoL 300 MG TABLET PO SCH (10:43)
[2020-04-08] MEDS: FERROUS SULFATE 325 MG TABLET PO SCH (10:43)
[2020-04-08] MEDS: AMIODARONE 200 MG TABLET PO SCH ×2 (10:43→21:02)
[2020-04-08] MEDS: POLYETHYLENE GLYCOL POWDER 17 GM PACK PO SCH (10:44)
[2020-04-08] MEDS: DEXAMETHASONE 10 MG/1 ML VIAL IV SCH (10:44)
[2020-04-08 12:17] LABS: Hepatitis B Core IgM Quant 0.06 Index; Hepatitis B Surface Ag Quant < 0.10 Index; Hepatitis B Surface Ag Result Negative (Negative); Hepatitis C Virus Ab Quant < 0.02 Index; Hepatitis C Virus Ab Result Negative (Negative)
[2020-04-08 18:16] LABS: Calcium 8.7 MG/DL (8.5-10.1); Osmolality,Calculated 280.8 MOS/KG (273-304); Potassium 5.5 MMOL/L (3.5-5.1)
[2020-04-08] MEDS: ROSUVASTATIN 20 MG TABLET PO SCH (21:02)
[2020-04-09 06:04] LABS: Basophils % 0.1 % (0.0-0.8); Hematocrit 30.5 VOL% (42.0-52.0); Hemoglobin 10.3 GM/DL (14.0-18.0); Immature Granulocytes % 1.1 %; Immature Granulocytes Absolute 0.14 #; Lymphocytes # 0.8 10*3/uL (1.4-4.0); Mean Corpuscular HGB Conc 33.8 GM/DL (32-36); Mean Corpuscular Volume 88.9 FL (87-102); Mean Platelet Volume 12.5 FL (9.6-12.0); Monocytes % 7.5 % (1.7-12.7); NRBC # 0.03 10*3/uL; Neutrophils % 85.3 % (38.7-73.9); Platelet Count 171 T/CUMM (130-400); Red Blood Count 3.43 MC/CUMM (3.8-5.5); Red Cell Distribution Width 15.2 % (9.3-17.3); White Blood Count 12.6 T/CUMM (4-12)
[2020-04-09] MEDS: ALBUTEROL INHALER 18 GM INH SCH ×2 (06:07→12:25)
[2020-04-09 06:45] LABS: Albumin 2.6 G/DL (3.4-5.0); Bilirubin,Total 0.8 MG/DL (0.2-1.0); Calcium 8.5 MG/DL (8.5-10.1); Ferritin 2063.6 ng/ml (26-388); Osmolality,Calculated 288.7 MOS/KG (273-304); Potassium 5.2 MMOL/L (3.5-5.1); Total Protein 6.6 G/DL (6.4-8.3)
[2020-04-09] MEDS: METOPROLOL TARTRATE 50 MG TABLET PO SCH (08:19)
[2020-04-09] MEDS: PANTOPRAZOLE 40 MG TABLET PO SCH (08:20)
[2020-04-09] MEDS: SEVELAMER CARBONATE 800 MG TABLET PO SCH ×2 (08:20→12:25)
[2020-04-09] MEDS: propylthiouraciL 50 MG TABLET PO SCH (08:20)
[2020-04-09] MEDS: CETIRIZINE 10 MG TABLET PO SCH (08:20)
[2020-04-09] MEDS: allopurinoL 300 MG TABLET PO SCH (08:20)
[2020-04-09] MEDS: CHOLECALCIFEROL 1,000 UNIT TABLET PO SCH (08:20)
[2020-04-09] MEDS: AMIODARONE 200 MG TABLET PO SCH (08:20)
[2020-04-09] MEDS: FERROUS SULFATE 325 MG TABLET PO SCH (08:20)
[2020-04-09] MEDS: APIXABAN 2.5 MG TABLET PO SCH (08:20)
[2020-04-09] MEDS: POLYETHYLENE GLYCOL POWDER 17 GM PACK PO SCH ×2 (08:21→08:28)
[2020-04-09] MEDS: amLODIPine 5 MG TABLET PO SCH (08:21)
[2020-04-09] MEDS: ASCORBIC ACID 500 MG TABLET PO SCH (10:19)
[2020-04-09] MEDS: FAMOTIDINE 20 MG TABLET PO SCH (10:19)
[2020-04-09] MEDS: ZINC GLUCONATE 50 MG TABLET PO SCH (10:19)
[2020-04-09 11:36] VITALS: BP 124/49
== END 2020-04-09 14:13 | DRG 177 ==
LOC: N.ED 21:12 → N.EDINP 03-21 00:41 → SUATTDRO 03-21 00:41 → N.2E 03-21 02:54
PROVIDERS: ADMIT Family Medicine; ATTEND Internal Medicine

== ENCOUNTER 2020-04-23 04:00 | Inpatient (IN) ==
[2020-04-23] MEDS ORDERED: ALBUTEROL/IPRATROPIUM 3 ML NEB RESP TX STA (04:18)
[2020-04-23] MEDS ORDERED: methylPREDNISolone SOD SUC 125 MG/2 ML VIAL IV STA (04:18)
[2020-04-23 04:54] LABS: Basophils % 0.3 % (0.0-0.8); Eosinophils # 0.1 10*3/uL (0.0-0.87); Eosinophils % 1.3 % (0.00-10.9); Hematocrit 28.7 VOL% (42.0-52.0); Hemoglobin 8.7 GM/DL (14.0-18.0); Immature Granulocytes % 2.1 %; Immature Granulocytes Absolute 0.13 #; Lymphocytes # 1.9 10*3/uL (1.4-4.0); Lymphocytes % 30.5 % (21.2-54.2); Mean Corpuscular HGB Conc 30.3 GM/DL (32-36); Mean Corpuscular Volume 100.3 FL (87-102); Mean Platelet Volume 11.5 FL (9.6-12.0); Monocytes % 18.5 % (1.7-12.7); NRBC # 0.08 10*3/uL; Neutrophils % 47.3 % (38.7-73.9); Red Blood Count 2.86 MC/CUMM (3.8-5.5); Red Cell Distribution Width 18.9 % (9.3-17.3); White Blood Count 6.1 T/CUMM (4-12)
[2020-04-23 04:55] LABS: Platelet Count 120 T/CUMM (130-400)
[2020-04-23 05:02] LABS: PT Patient Result 11.1 SECS (9.8-11.9)
[2020-04-23 05:11] LABS: Eosinophils 1 % (0-10); Lymphocytes 30 % (20-55); Segmented Neutrophils 44 % (50-85); Total Cells Counted 100
[2020-04-23 05:12] LABS: Atypical Lymphocytes Few; Hypochromasia 1+; Microcytosis 1+
[2020-04-23 05:16] LABS: Albumin 2.3 G/DL (3.4-5.0); Bilirubin,Total 0.7 MG/DL (0.2-1.0); Calcium 8.3 MG/DL (8.5-10.1); Osmolality,Calculated 281.8 MOS/KG (273-304); Potassium 5.1 MMOL/L (3.5-5.1); Total Protein 5.6 G/DL (6.4-8.3)
[2020-04-23] MEDS ORDERED: PIPERACILLIN/TAZOBACTAM 2,250 MG in SODIUM CHLORIDE 0.9% 100 ML IV STA (05:24)
[2020-04-23] MEDS ORDERED: PIPERACILLIN/TAZOBACTAM 3,375 MG VIAL IV ONE (05:28)
[2020-04-23] MEDS ORDERED: SODIUM CHLORIDE 0.9% 100 ML IV ONE (05:28)
[2020-04-23] MEDS ORDERED: PIPERACILLIN/TAZOBACTAM 3,375 MG in SODIUM CHLORIDE 0.9% 100 ML IV STA (05:29)
[2020-04-23] MEDS ORDERED: DEXTROSE 50% 25 GM/50 ML VIAL IV PRN (05:51)
[2020-04-23] MEDS ORDERED: ONDANSETRON 4 MG/2 ML VIAL IV PRN (05:51)
[2020-04-23] MEDS ORDERED: ACETAMINOPHEN 325 MG TABLET PO PRN (05:51)
[2020-04-23] MEDS ORDERED: GLUCAGON 1 MG VIAL IM PRN (05:51)
[2020-04-23] MEDS: ALBUTEROL/IPRATROPIUM 3 ML NEB RESP TX SCH ×3 (07:06→19:10)
[2020-04-23] MEDS ORDERED: PANTOPRAZOLE 40 MG TABLET PO SCH (09:00)
[2020-04-23] MEDS: PIPERACILLIN/TAZOBACTAM 2,250 MG in SODIUM CHLORIDE 0.9% 100 ML IV SCH (19:52)
[2020-04-24] MEDS: ALBUTEROL/IPRATROPIUM 3 ML NEB RESP TX SCH ×4 (00:28→19:38)
[2020-04-24 05:25] LABS: Basophils % 0.2 % (0.0-0.8); Hematocrit 27.2 VOL% (42.0-52.0); Hemoglobin 8.7 GM/DL (14.0-18.0); Immature Granulocytes % 3.3 %; Immature Granulocytes Absolute 0.21 #; Lymphocytes # 1.2 10*3/uL (1.4-4.0); Lymphocytes % 19.7 % (21.2-54.2); Mean Corpuscular Volume 96.1 FL (87-102); Mean Platelet Volume 12.1 FL (9.6-12.0); Monocytes % 13.3 % (1.7-12.7); NRBC # 0.13 10*3/uL; Neutrophils % 63.5 % (38.7-73.9); Platelet Count 140 T/CUMM (130-400); Red Blood Count 2.83 MC/CUMM (3.8-5.5); Red Cell Distribution Width 18.6 % (9.3-17.3); White Blood Count 6.3 T/CUMM (4-12)
[2020-04-24 05:47] LABS: Lymphocytes 22 % (20-55); Nucleated Red Blood Cells 4 (0-5); Segmented Neutrophils 68 % (50-85); Total Cells Counted 100
[2020-04-24 05:48] LABS: Atypical Lymphocytes Few; Hypochromasia 2+; Microcytosis 1+; Ovalocytes Slight; Platelet Estimate Adequate
[2020-04-24 06:06] LABS: Albumin 2.4 G/DL (3.4-5.0); Bilirubin,Total 0.6 MG/DL (0.2-1.0); Calcium 8.8 MG/DL (8.5-10.1); Osmolality,Calculated 277.1 MOS/KG (273-304); Total Protein 6.7 G/DL (6.4-8.3)
[2020-04-24] MEDS: PIPERACILLIN/TAZOBACTAM 2,250 MG in SODIUM CHLORIDE 0.9% 100 ML IV SCH (06:16)
[2020-04-24] MEDS ORDERED: APIXABAN 5 MG TABLET PO SCH (09:00)
[2020-04-24] MEDS ORDERED: HEPARIN 5,000 UNIT/1 ML VIAL IV ONE (11:00)
[2020-04-24] MEDS: HEPARIN DRIP 25,000 UNITS/500 ML PREMIX IV SCH (11:47)
[2020-04-24] MEDS: methylPREDNISolone SOD SUC 40 MG/1 ML VIAL IV SCH ×2 (11:51→21:33)
[2020-04-24] MEDS: allopurinoL 300 MG TABLET PO SCH (11:53)
[2020-04-24] MEDS: SEVELAMER CARBONATE 800 MG TABLET PO SCH ×2 (11:53→16:18)
[2020-04-24] MEDS: AMIODARONE 200 MG TABLET PO SCH ×2 (11:53→21:32)
[2020-04-24] MEDS: METOPROLOL TARTRATE 50 MG TABLET PO SCH ×2 (11:54→21:32)
[2020-04-24] MEDS: amLODIPine 5 MG TABLET PO SCH (11:54)
[2020-04-24] MEDS: FERROUS SULFATE 325 MG TABLET PO SCH (11:54)
[2020-04-24] MEDS: WARFARIN 5 MG TABLET PO SCH (11:55)
[2020-04-24] MEDS: propylthiouraciL 50 MG TABLET PO SCH ×2 (12:05→21:32)
[2020-04-24] MEDS: POLYETHYLENE GLYCOL POWDER 17 GM PACK PO SCH (12:06)
[2020-04-24] MEDS ORDERED: MAGNESIUM HYDROXIDE SUSP 30 ML UDCUP PO PRN (17:49)
[2020-04-24] MEDS: ROSUVASTATIN 20 MG TABLET PO SCH (21:32)
[2020-04-24] MEDS: PIPERACILLIN/TAZOBACTAM 3,375 MG in SODIUM CHLORIDE 0.9% 100 ML IV SCH (21:33)
[2020-04-25] MEDS: ALBUTEROL/IPRATROPIUM 3 ML NEB RESP TX SCH ×4 (01:15→19:55)
[2020-04-25] MEDS: methylPREDNISolone SOD SUC 40 MG/1 ML VIAL IV SCH ×3 (05:17→21:57)
[2020-04-25] MEDS: HEPARIN DRIP 25,000 UNITS/500 ML PREMIX IV SCH (07:30)
[2020-04-25] MEDS: PIPERACILLIN/TAZOBACTAM 3,375 MG in SODIUM CHLORIDE 0.9% 100 ML IV SCH ×2 (09:05→22:16)
[2020-04-25] MEDS: propylthiouraciL 50 MG TABLET PO SCH ×2 (09:06→22:15)
[2020-04-25] MEDS: AMIODARONE 200 MG TABLET PO SCH ×2 (09:06→22:15)
[2020-04-25] MEDS: allopurinoL 300 MG TABLET PO SCH (09:07)
[2020-04-25] MEDS: FERROUS SULFATE 325 MG TABLET PO SCH (09:07)
[2020-04-25] MEDS: WARFARIN 5 MG TABLET PO SCH (09:07)
[2020-04-25] MEDS: amLODIPine 5 MG TABLET PO SCH (09:07)
[2020-04-25] MEDS: SEVELAMER CARBONATE 800 MG TABLET PO SCH ×3 (09:07→18:40)
[2020-04-25] MEDS: METOPROLOL TARTRATE 50 MG TABLET PO SCH ×2 (09:07→21:29)
[2020-04-25] MEDS: POLYETHYLENE GLYCOL POWDER 17 GM PACK PO SCH (09:08)
[2020-04-25] MEDS ORDERED: HEPARIN 10,000 UNIT/10 ML VIAL IV SCH (17:45)
[2020-04-25] MEDS: ROSUVASTATIN 20 MG TABLET PO SCH (22:15)
[2020-04-26] MEDS: ALBUTEROL/IPRATROPIUM 3 ML NEB RESP TX SCH ×4 (00:02→19:23)
[2020-04-26] MEDS: HEPARIN DRIP 25,000 UNITS/500 ML PREMIX IV SCH (01:14)
[2020-04-26] MEDS: methylPREDNISolone SOD SUC 40 MG/1 ML VIAL IV SCH ×3 (04:34→21:14)
[2020-04-26 07:01] LABS: Basophils % 0.2 % (0.0-0.8); Hematocrit 25.2 VOL% (42.0-52.0); Immature Granulocytes % 6.8 %; Immature Granulocytes Absolute 0.57 #; Lymphocytes # 1.3 10*3/uL (1.4-4.0); Lymphocytes % 15.5 % (21.2-54.2); Mean Corpuscular HGB Conc 31.7 GM/DL (32-36); Mean Corpuscular Volume 97.7 FL (87-102); NRBC # 0.18 10*3/uL; Neutrophils % 63.5 % (38.7-73.9); Platelet Count 169 T/CUMM (130-400); Red Blood Count 2.58 MC/CUMM (3.8-5.5); Red Cell Distribution Width 19.2 % (9.3-17.3); White Blood Count 8.4 T/CUMM (4-12)
[2020-04-26 07:15] LABS: INR 1.2; PT Patient Result 12.4 SECS (9.8-11.9)
[2020-04-26 07:16] LABS: INR 1.2; PT Patient Result 12.4 SECS (9.8-11.9)
[2020-04-26 08:38] LABS: Calcium 8.6 MG/DL (8.5-10.1); Osmolality,Calculated 277.1 MOS/KG (273-304); Potassium 4.6 MMOL/L (3.5-5.1)
[2020-04-26 08:48] LABS: Lymphocytes 19 % (20-55); Metamyelocytes 1 %; Nucleated Red Blood Cells 3 (0-5); Platelet Estimate Normal; Segmented Neutrophils 66 % (50-85); Total Cells Counted 100
[2020-04-26 08:49] LABS: Anisocytosis 2+; Hypochromasia 2+; Macrocytosis 2+; Target Cells 2+
[2020-04-26] MEDS: allopurinoL 300 MG TABLET PO SCH (09:30)
[2020-04-26] MEDS: SEVELAMER CARBONATE 800 MG TABLET PO SCH ×3 (09:31→16:49)
[2020-04-26] MEDS: METOPROLOL TARTRATE 50 MG TABLET PO SCH ×2 (09:31→21:17)
[2020-04-26] MEDS: propylthiouraciL 50 MG TABLET PO SCH ×2 (09:31→21:17)
[2020-04-26] MEDS: FERROUS SULFATE 325 MG TABLET PO SCH (09:31)
[2020-04-26] MEDS: AMIODARONE 200 MG TABLET PO SCH ×2 (09:31→21:17)
[2020-04-26] MEDS: WARFARIN 5 MG TABLET PO SCH (09:32)
[2020-04-26] MEDS: POLYETHYLENE GLYCOL POWDER 17 GM PACK PO SCH (09:32)
[2020-04-26] MEDS: amLODIPine 5 MG TABLET PO SCH (09:32)
[2020-04-26] MEDS: PIPERACILLIN/TAZOBACTAM 3,375 MG in SODIUM CHLORIDE 0.9% 100 ML IV SCH ×2 (09:34→21:18)
[2020-04-26] MEDS: HEPARIN 5,000 UNIT/1 ML VIAL SUBCUT SCH ×2 (16:49→23:51)
[2020-04-26] MEDS: ROSUVASTATIN 20 MG TABLET PO SCH (21:18)
[2020-04-27] MEDS: ALBUTEROL/IPRATROPIUM 3 ML NEB RESP TX SCH ×4 (00:07→20:12)
[2020-04-27] MEDS: methylPREDNISolone SOD SUC 40 MG/1 ML VIAL IV SCH ×3 (05:58→20:23)
[2020-04-27] MEDS: HEPARIN 5,000 UNIT/1 ML VIAL SUBCUT SCH ×3 (06:22→22:00)
[2020-04-27 06:32] LABS: INR 1.4; PT Patient Result 14.3 SECS (9.8-11.9); Partial Thromboplastin Time 26.7 SECS (23.9-33.8)
[2020-04-27] MEDS: POLYETHYLENE GLYCOL POWDER 17 GM PACK PO SCH (08:27)
[2020-04-27] MEDS: METOPROLOL TARTRATE 50 MG TABLET PO SCH ×2 (08:28→20:22)
[2020-04-27] MEDS: propylthiouraciL 50 MG TABLET PO SCH ×2 (08:28→20:22)
[2020-04-27] MEDS: amLODIPine 5 MG TABLET PO SCH (08:28)
[2020-04-27] MEDS: AMIODARONE 200 MG TABLET PO SCH ×2 (08:29→20:22)
[2020-04-27] MEDS: FERROUS SULFATE 325 MG TABLET PO SCH (08:29)
[2020-04-27] MEDS: allopurinoL 300 MG TABLET PO SCH (08:29)
[2020-04-27] MEDS: PIPERACILLIN/TAZOBACTAM 3,375 MG in SODIUM CHLORIDE 0.9% 100 ML IV SCH (08:29)
[2020-04-27] MEDS: SEVELAMER CARBONATE 800 MG TABLET PO SCH ×3 (08:29→17:48)
[2020-04-27] MEDS ORDERED: diphenhydrAMINE CAP 25 MG CAPSULE PO PRN (10:21)
[2020-04-27] MEDS: AMOXICILLIN/CLAV 500 MG TABLET PO SCH ×2 (12:37→21:38)
[2020-04-27] MEDS: ROSUVASTATIN 20 MG TABLET PO SCH (20:22)
[2020-04-27] MEDS ORDERED: SIMETHICONE CHEW 125 MG TABLET PO PRN (21:25)
[2020-04-28] MEDS: ALBUTEROL/IPRATROPIUM 3 ML NEB RESP TX SCH ×4 (00:52→19:49)
[2020-04-28 05:26] LABS: Basophils % 0.2 % (0.0-0.8); Hematocrit 25.5 VOL% (42.0-52.0); Immature Granulocytes % 9.6 %; Immature Granulocytes Absolute 1.35 #; Lymphocytes # 1.7 10*3/uL (1.4-4.0); Lymphocytes % 11.7 % (21.2-54.2); Mean Corpuscular HGB Conc 31.4 GM/DL (32-36); Mean Corpuscular Volume 96.2 FL (87-102); Mean Platelet Volume 11.5 FL (9.6-12.0); NRBC # 0.28 10*3/uL; Neutrophils % 67.5 % (38.7-73.9); Platelet Count 218 T/CUMM (130-400); Red Blood Count 2.65 MC/CUMM (3.8-5.5); Red Cell Distribution Width 18.4 % (9.3-17.3); White Blood Count 14.1 T/CUMM (4-12)
[2020-04-28 05:40] LABS: INR 1.4; PT Patient Result 14.5 SECS (9.8-11.9); Partial Thromboplastin Time 28.2 SECS (23.9-33.8)
[2020-04-28 05:47] LABS: Band Neutrophils 1 % (0-10); Hypochromasia 2+; Lymphocytes 19 % (20-55); Microcytosis 1+; Nucleated Red Blood Cells 2 (0-5); Platelet Estimate Adequate; Segmented Neutrophils 70 % (50-85); Total Cells Counted 100
[2020-04-28 05:48] LABS: Atypical Lymphocytes Few
[2020-04-28 05:59] LABS: Calcium 8.4 MG/DL (8.5-10.1); Osmolality,Calculated 291.7 MOS/KG (273-304)
[2020-04-28] MEDS: HEPARIN 5,000 UNIT/1 ML VIAL SUBCUT SCH ×2 (07:04→18:06)
[2020-04-28] MEDS: methylPREDNISolone SOD SUC 40 MG/1 ML VIAL IV SCH ×3 (07:04→21:04)
[2020-04-28] MEDS: SEVELAMER CARBONATE 800 MG TABLET PO SCH ×3 (09:03→18:05)
[2020-04-28] MEDS: amLODIPine 5 MG TABLET PO SCH (09:04)
[2020-04-28] MEDS: FERROUS SULFATE 325 MG TABLET PO SCH (09:04)
[2020-04-28] MEDS: propylthiouraciL 50 MG TABLET PO SCH ×2 (09:04→21:03)
[2020-04-28] MEDS: METOPROLOL TARTRATE 50 MG TABLET PO SCH ×2 (09:04→21:03)
[2020-04-28] MEDS: AMIODARONE 200 MG TABLET PO SCH ×2 (09:05→21:03)
[2020-04-28] MEDS: allopurinoL 300 MG TABLET PO SCH (09:05)
[2020-04-28] MEDS: POLYETHYLENE GLYCOL POWDER 17 GM PACK PO SCH (09:05)
[2020-04-28] MEDS ORDERED: HEPARIN 10,000 UNIT/10 ML VIAL IV PRN (12:14)
[2020-04-28] MEDS: AMOXICILLIN/CLAV 500 MG TABLET PO SCH ×2 (15:56→22:41)
[2020-04-28] MEDS: ROSUVASTATIN 20 MG TABLET PO SCH (21:03)
[2020-04-29] MEDS: ALBUTEROL/IPRATROPIUM 3 ML NEB RESP TX SCH ×4 (00:22→19:52)
[2020-04-29] MEDS: HEPARIN 5,000 UNIT/1 ML VIAL SUBCUT SCH ×3 (00:33→17:46)
[2020-04-29] MEDS: methylPREDNISolone SOD SUC 40 MG/1 ML VIAL IV SCH ×2 (05:15→12:27)
[2020-04-29] MEDS ORDERED: ALBUTEROL/IPRATROPIUM 3 ML NEB RESP TX ONE (09:34)
[2020-04-29] MEDS: POLYETHYLENE GLYCOL POWDER 17 GM PACK PO SCH (09:48)
[2020-04-29] MEDS: AMIODARONE 200 MG TABLET PO SCH ×2 (09:49→21:14)
[2020-04-29] MEDS: amLODIPine 5 MG TABLET PO SCH (09:49)
[2020-04-29] MEDS: allopurinoL 300 MG TABLET PO SCH (09:49)
[2020-04-29] MEDS: AMOXICILLIN/CLAV 500 MG TABLET PO SCH ×2 (09:49→21:51)
[2020-04-29] MEDS: propylthiouraciL 50 MG TABLET PO SCH ×2 (09:49→21:15)
[2020-04-29] MEDS: SEVELAMER CARBONATE 800 MG TABLET PO SCH ×3 (09:49→17:46)
[2020-04-29] MEDS: METOPROLOL TARTRATE 50 MG TABLET PO SCH ×2 (09:49→21:14)
[2020-04-29] MEDS: FERROUS SULFATE 325 MG TABLET PO SCH (09:49)
[2020-04-29] MEDS: CLINDAMYCIN 300 MG CAPSULE PO SCH (21:14)
[2020-04-29] MEDS: ROSUVASTATIN 20 MG TABLET PO SCH (21:14)
[2020-04-29] MEDS: predniSONE 20 MG TABLET PO SCH (21:15)
[2020-04-30] MEDS: HEPARIN 5,000 UNIT/1 ML VIAL SUBCUT SCH ×3 (00:04→17:50)
[2020-04-30] MEDS: ALBUTEROL/IPRATROPIUM 3 ML NEB RESP TX SCH ×4 (01:45→19:24)
[2020-04-30 09:30] LABS: Basophils # 0.1 10*3/uL (0.0-0.2); Basophils % 0.3 % (0.0-0.8); Hematocrit 25.7 VOL% (42.0-52.0); Hemoglobin 8.6 GM/DL (14.0-18.0); Immature Granulocytes % 10.9 %; Immature Granulocytes Absolute 1.92 #; Lymphocytes # 1.3 10*3/uL (1.4-4.0); Lymphocytes % 7.5 % (21.2-54.2); Mean Corpuscular HGB Conc 33.5 GM/DL (32-36); Mean Corpuscular Volume 94.5 FL (87-102); Mean Platelet Volume 11.1 FL (9.6-12.0); Monocytes % 13.2 % (1.7-12.7); NRBC # 0.37 10*3/uL; Neutrophils % 68.1 % (38.7-73.9); Platelet Count 214 T/CUMM (130-400); Red Blood Count 2.72 MC/CUMM (3.8-5.5); Red Cell Distribution Width 18.7 % (9.3-17.3); White Blood Count 17.6 T/CUMM (4-12)
[2020-04-30 09:53] LABS: Calcium 8.5 MG/DL (8.5-10.1); Osmolality,Calculated 280.7 MOS/KG (273-304); Potassium 5.1 MMOL/L (3.5-5.1)
[2020-04-30 09:56] LABS: Band Neutrophils 2 % (0-10); Hypochromasia 1+; Lymphocytes 7 % (20-55); Microcytosis 1+; Nucleated Red Blood Cells 4 (0-5); Ovalocytes Slight; Platelet Estimate Adequate; Segmented Neutrophils 80 % (50-85); Total Cells Counted 100
[2020-04-30] MEDS: SEVELAMER CARBONATE 800 MG TABLET PO SCH ×3 (10:03→17:13)
[2020-04-30] MEDS: allopurinoL 300 MG TABLET PO SCH (10:04)
[2020-04-30] MEDS: propylthiouraciL 50 MG TABLET PO SCH ×2 (10:04→21:13)
[2020-04-30] MEDS: AMOXICILLIN/CLAV 500 MG TABLET PO SCH ×2 (10:05→22:31)
[2020-04-30] MEDS: FERROUS SULFATE 325 MG TABLET PO SCH (10:05)
[2020-04-30] MEDS: CLINDAMYCIN 300 MG CAPSULE PO SCH ×3 (10:05→21:14)
[2020-04-30] MEDS: predniSONE 20 MG TABLET PO SCH ×2 (10:05→21:14)
[2020-04-30] MEDS: POLYETHYLENE GLYCOL POWDER 17 GM PACK PO SCH (10:06)
[2020-04-30] MEDS: AMIODARONE 200 MG TABLET PO SCH ×2 (12:30→21:14)
[2020-04-30] MEDS: METOPROLOL TARTRATE 50 MG TABLET PO SCH ×2 (12:30→21:14)
[2020-04-30] MEDS: amLODIPine 5 MG TABLET PO SCH (13:24)
[2020-04-30] MEDS: ROSUVASTATIN 20 MG TABLET PO SCH (21:13)
[2020-05-01] MEDS: ALBUTEROL/IPRATROPIUM 3 ML NEB RESP TX SCH ×3 (00:25→12:11)
[2020-05-01] MEDS: HEPARIN 5,000 UNIT/1 ML VIAL SUBCUT SCH ×2 (01:06→09:25)
[2020-05-01 05:33] LABS: Basophils # 0.1 10*3/uL (0.0-0.2); Basophils % 0.3 % (0.0-0.8); Hematocrit 25.5 VOL% (42.0-52.0); Hemoglobin 8.1 GM/DL (14.0-18.0); Immature Granulocytes % 11.9 %; Immature Granulocytes Absolute 1.88 #; Lymphocytes # 1.1 10*3/uL (1.4-4.0); Lymphocytes % 7.2 % (21.2-54.2); Mean Corpuscular HGB Conc 31.8 GM/DL (32-36); Mean Corpuscular Volume 96.6 FL (87-102); Mean Platelet Volume 10.8 FL (9.6-12.0); Monocytes % 13.2 % (1.7-12.7); NRBC # 0.36 10*3/uL; Neutrophils % 67.4 % (38.7-73.9); Platelet Count 198 T/CUMM (130-400); Red Blood Count 2.64 MC/CUMM (3.8-5.5); Red Cell Distribution Width 18.9 % (9.3-17.3); White Blood Count 15.8 T/CUMM (4-12)
[2020-05-01 05:51] LABS: Calcium 8.6 MG/DL (8.5-10.1); Osmolality,Calculated 290.1 MOS/KG (273-304); Potassium 5.4 MMOL/L (3.5-5.1)
[2020-05-01 06:09] LABS: Hypochromasia 1+; Lymphocytes 14 % (20-55); Microcytosis 1+; Nucleated Red Blood Cells 2 (0-5); Platelet Estimate Adequate; Segmented Neutrophils 78 % (50-85); Total Cells Counted 100
[2020-05-01] MEDS: CLINDAMYCIN 300 MG CAPSULE PO SCH ×2 (09:24→17:12)
[2020-05-01] MEDS: METOPROLOL TARTRATE 50 MG TABLET PO SCH (09:24)
[2020-05-01] MEDS: propylthiouraciL 50 MG TABLET PO SCH (09:24)
[2020-05-01] MEDS: amLODIPine 5 MG TABLET PO SCH (09:24)
[2020-05-01] MEDS: allopurinoL 300 MG TABLET PO SCH (09:25)
[2020-05-01] MEDS: AMIODARONE 200 MG TABLET PO SCH (09:25)
[2020-05-01] MEDS: FERROUS SULFATE 325 MG TABLET PO SCH (09:25)
[2020-05-01] MEDS: predniSONE 20 MG TABLET PO SCH (09:25)
[2020-05-01] MEDS: SEVELAMER CARBONATE 800 MG TABLET PO SCH ×2 (09:25→13:29)
[2020-05-01] MEDS: AMOXICILLIN/CLAV 500 MG TABLET PO SCH (09:39)
[2020-05-01] MEDS: POLYETHYLENE GLYCOL POWDER 17 GM PACK PO SCH (09:39)
[2020-05-01 11:47] VITALS: BP 148/69
== END 2020-05-01 16:45 | DRG 175 ==
LOC: EDBD → EDUNIT# → SUATTDRO → N.ED 04:00 → N.EDINP 05:51 → SUATTDRO 05:51 → N.5E 16:49
PROVIDERS: ADMIT Family Medicine; ATTEND Emergency Medicine

== ENCOUNTER 2020-06-07 14:25 | Inpatient (IN) ==
[2020-06-07 15:04] LABS: ABG Base Excess 5.6 MMOL/L (-2.5-2.5); ABG HCO3 29.4 MMOL/L (20-26); ABG Oxygen Saturation 91.3 % (95-100); ABG PCO2 46.9 MM HG (35-48); ABG PH 7.424 (7.35-7.45); ABG PO2 61.7 MM HG (80-95); ABG TCO2 28.4 MMOL/L (23-27)
[2020-06-07] MEDS ORDERED: PIPERACILLIN/TAZOBACTAM 3,375 MG in SODIUM CHLORIDE 0.9% 100 ML IV STA (15:30)
[2020-06-07 15:38] LABS: Basophils # 0.1 10*3/uL (0.0-0.2); Basophils % 0.5 % (0.0-0.8); Eosinophils # 0.1 10*3/uL (0.0-0.87); Eosinophils % 0.9 % (0.00-10.9); Hematocrit 30.5 VOL% (42.0-52.0); Hemoglobin 9.4 GM/DL (14.0-18.0); Immature Granulocytes % 0.8 %; Immature Granulocytes Absolute 0.09 #; Lymphocytes # 1.2 10*3/uL (1.4-4.0); Lymphocytes % 11.1 % (21.2-54.2); Mean Corpuscular HGB Conc 30.8 GM/DL (32-36); Mean Corpuscular Volume 105.2 FL (87-102); Mean Platelet Volume 11.6 FL (9.6-12.0); Monocytes % 13.8 % (1.7-12.7); NRBC # 0.09 10*3/uL; Neutrophils % 72.9 % (38.7-73.9); Platelet Count 178 T/CUMM (130-400); Red Cell Distribution Width 20.4 % (9.3-17.3); White Blood Count 11.1 T/CUMM (4-12)
[2020-06-07 15:48] LABS: INR 1.1; PT Patient Result 12.2 SECS (9.8-11.9)
[2020-06-07] MEDS ORDERED: PIPERACILLIN/TAZOBACTAM 3,375 MG VIAL IV ONE (15:55)
[2020-06-07 15:58] LABS: Albumin 2.5 G/DL (3.4-5.0); Bilirubin,Total 0.4 MG/DL (0.2-1.0); Calcium 9.4 MG/DL (8.5-10.1); Osmolality,Calculated 275.8 MOS/KG (273-304); Potassium 3.9 MMOL/L (3.5-5.1); Total Protein 6.7 G/DL (5.0-7.5)
[2020-06-07] MEDS ORDERED: SODIUM CHLORIDE 0.9% 100 ML IV ONE (15:58)
[2020-06-07] MEDS ORDERED: DEXTROSE 50% 25 GM/50 ML VIAL IV PRN (17:46)
[2020-06-07] MEDS ORDERED: ONDANSETRON 4 MG/2 ML VIAL IV PRN (17:46)
[2020-06-07] MEDS ORDERED: GLUCAGON 1 MG VIAL IM PRN (17:46)
[2020-06-07] MEDS ORDERED: LEVOFLOXACIN INJ 500 MG in PREMIX 1 EACH IV SCH (18:00)
[2020-06-07] MEDS: ALBUTEROL/IPRATROPIUM 3 ML NEB RESP TX SCH (19:18)
[2020-06-07] MEDS: DOXYCYCLINE HYCLATE 100 MG CAPSULE PO SCH (21:02)
[2020-06-07] MEDS: APIXABAN 2.5 MG TABLET PO SCH (21:02)
[2020-06-07] MEDS: METOPROLOL TARTRATE 25 MG TABLET PO SCH (21:02)
[2020-06-08] MEDS: ALBUTEROL/IPRATROPIUM 3 ML NEB RESP TX SCH ×4 (00:14→19:50)
[2020-06-08] MEDS: PIPERACILLIN/TAZOBACTAM 3,375 MG in SODIUM CHLORIDE 0.9% 100 ML IV SCH ×2 (03:51→14:44)
[2020-06-08 06:51] LABS: Basophils % 0.4 % (0.0-0.8); Eosinophils # 0.2 10*3/uL (0.0-0.87); Eosinophils % 1.7 % (0.00-10.9); Hematocrit 26.1 VOL% (42.0-52.0); Hemoglobin 7.9 GM/DL (14.0-18.0); Immature Granulocytes Absolute 0.09 #; Lymphocytes # 1.4 10*3/uL (1.4-4.0); Mean Corpuscular HGB Conc 30.3 GM/DL (32-36); Mean Corpuscular Volume 106.5 FL (87-102); Mean Platelet Volume 11.5 FL (9.6-12.0); Monocytes % 17.5 % (1.7-12.7); NRBC # 0.12 10*3/uL; Neutrophils % 64.4 % (38.7-73.9); Platelet Count 157 T/CUMM (130-400); Red Blood Count 2.45 MC/CUMM (3.8-5.5); Red Cell Distribution Width 20.2 % (9.3-17.3); White Blood Count 9.2 T/CUMM (4-12)
[2020-06-08 07:11] LABS: Free T4 (Free Thyroxine) 1.04 NG/DL (0.76-1.46)
[2020-06-08 07:17] LABS: Calcium 8.8 MG/DL (8.5-10.1); Osmolality,Calculated 278.8 MOS/KG (273-304); Potassium 3.7 MMOL/L (3.5-5.1); Thyroid Stimulating Hormone 0.523 uIU/ml (0.358-3.74)
[2020-06-08 07:23] LABS: Folate 11.7 NG/ML (5.38-24.0); Vitamin B12 725 PG/ML (211-911)
[2020-06-08 08:40] LABS: Sedimentation Rate-Westergren 98 MM/HR (0-20)
[2020-06-08] MEDS: allopurinoL 300 MG TABLET PO SCH (09:17)
[2020-06-08] MEDS: APIXABAN 2.5 MG TABLET PO SCH ×2 (09:17→20:47)
[2020-06-08] MEDS: SEVELAMER CARBONATE 800 MG TABLET PO SCH ×3 (09:17→17:05)
[2020-06-08] MEDS: METOPROLOL TARTRATE 25 MG TABLET PO SCH ×2 (09:17→20:47)
[2020-06-08] MEDS: ATORVASTATIN 40 MG TABLET PO SCH (09:17)
[2020-06-08] MEDS: DOXYCYCLINE HYCLATE 100 MG CAPSULE PO SCH ×2 (09:17→20:47)
[2020-06-08] MEDS: amLODIPine 5 MG TABLET PO SCH (09:17)
[2020-06-08] MEDS: AMIODARONE 200 MG TABLET PO SCH (09:19)
[2020-06-08] MEDS: FERROUS SULFATE 325 MG TABLET PO SCH (09:20)
[2020-06-08 09:49] LABS: Anisocytosis 2+; Eosinophils 3 % (0-10); Lymphocytes 19 % (20-55); Macrocytosis 2+; Platelet Estimate Normal; Segmented Neutrophils 66 % (50-85); Total Cells Counted 100
[2020-06-08] MEDS: methylPREDNISolone SOD SUC 40 MG/1 ML VIAL IV SCH (17:44)
[2020-06-08] MEDS: BUDESONIDE 0.5 MG/2 ML NEB RESP TX SCH (19:50)
[2020-06-09] MEDS: ALBUTEROL/IPRATROPIUM 3 ML NEB RESP TX SCH ×4 (01:18→19:50)
[2020-06-09] MEDS: PIPERACILLIN/TAZOBACTAM 3,375 MG in SODIUM CHLORIDE 0.9% 100 ML IV SCH ×2 (02:27→17:18)
[2020-06-09] MEDS: methylPREDNISolone SOD SUC 40 MG/1 ML VIAL IV SCH ×3 (02:27→17:13)
[2020-06-09 06:18] LABS: Basophils % 0.3 % (0.0-0.8); Hematocrit 27.8 VOL% (42.0-52.0); Hemoglobin 8.6 GM/DL (14.0-18.0); Immature Granulocytes % 1.1 %; Immature Granulocytes Absolute 0.09 #; Lymphocytes # 0.7 10*3/uL (1.4-4.0); Lymphocytes % 8.9 % (21.2-54.2); Mean Corpuscular HGB Conc 30.9 GM/DL (32-36); Mean Corpuscular Volume 103.7 FL (87-102); Mean Platelet Volume 11.4 FL (9.6-12.0); Monocytes % 3.3 % (1.7-12.7); NRBC # 0.14 10*3/uL; Neutrophils % 86.4 % (38.7-73.9); Platelet Count 163 T/CUMM (130-400); Red Blood Count 2.68 MC/CUMM (3.8-5.5); Red Cell Distribution Width 20.4 % (9.3-17.3); White Blood Count 7.9 T/CUMM (4-12)
[2020-06-09 06:49] LABS: Calcium 9.1 MG/DL (8.5-10.1); Osmolality,Calculated 286.1 MOS/KG (273-304); Potassium 4.5 MMOL/L (3.5-5.1)
[2020-06-09] MEDS: BUDESONIDE 0.5 MG/2 ML NEB RESP TX SCH ×2 (07:19→19:50)
[2020-06-09] MEDS: amLODIPine 5 MG TABLET PO SCH (08:24)
[2020-06-09] MEDS: ATORVASTATIN 40 MG TABLET PO SCH (08:24)
[2020-06-09] MEDS: APIXABAN 2.5 MG TABLET PO SCH ×2 (08:24→21:13)
[2020-06-09] MEDS: DOXYCYCLINE HYCLATE 100 MG CAPSULE PO SCH ×2 (08:24→21:12)
[2020-06-09] MEDS: METOPROLOL TARTRATE 25 MG TABLET PO SCH ×2 (08:24→21:12)
[2020-06-09] MEDS: SEVELAMER CARBONATE 800 MG TABLET PO SCH ×3 (08:24→17:43)
[2020-06-09] MEDS: allopurinoL 300 MG TABLET PO SCH (08:25)
[2020-06-09] MEDS: AMIODARONE 200 MG TABLET PO SCH (08:25)
[2020-06-09] MEDS: FERROUS SULFATE 325 MG TABLET PO SCH (08:26)
[2020-06-09 09:39] LABS: Hemoglobin A1 (Alkaline) 97.5 % (96.5-98.5); Hemoglobin A2 (Alkaline) 2.5 % (1.5-3.5)
[2020-06-09] MEDS ORDERED: HEPARIN 10,000 UNIT/10 ML VIAL IV PRN (13:43)
[2020-06-09] MEDS: POLYETHYLENE GLYCOL POWDER 17 GM PACK PO SCH (17:13)
[2020-06-10] MEDS: ALBUTEROL/IPRATROPIUM 3 ML NEB RESP TX SCH ×4 (00:30→19:49)
[2020-06-10] MEDS: methylPREDNISolone SOD SUC 40 MG/1 ML VIAL IV SCH ×3 (02:45→17:21)
[2020-06-10] MEDS: PIPERACILLIN/TAZOBACTAM 3,375 MG in SODIUM CHLORIDE 0.9% 100 ML IV SCH ×2 (02:46→15:20)
[2020-06-10 06:28] LABS: Basophils % 0.2 % (0.0-0.8); Hematocrit 27.9 VOL% (42.0-52.0); Hemoglobin 8.8 GM/DL (14.0-18.0); Immature Granulocytes Absolute 0.24 #; Lymphocytes # 1.1 10*3/uL (1.4-4.0); Lymphocytes % 8.8 % (21.2-54.2); Mean Corpuscular HGB Conc 31.5 GM/DL (32-36); Mean Platelet Volume 11.2 FL (9.6-12.0); Monocytes % 6.3 % (1.7-12.7); NRBC # 0.41 10*3/uL; Neutrophils % 82.7 % (38.7-73.9); Platelet Count 189 T/CUMM (130-400); Red Blood Count 2.71 MC/CUMM (3.8-5.5); Red Cell Distribution Width 20.1 % (9.3-17.3); White Blood Count 12.1 T/CUMM (4-12)
[2020-06-10 06:45] LABS: Calcium 8.5 MG/DL (8.5-10.1); Osmolality,Calculated 282.8 MOS/KG (273-304); Potassium 4.1 MMOL/L (3.5-5.1)
[2020-06-10] MEDS: BUDESONIDE 0.5 MG/2 ML NEB RESP TX SCH ×2 (07:31→19:49)
[2020-06-10] MEDS: POLYETHYLENE GLYCOL POWDER 17 GM PACK PO SCH (08:07)
[2020-06-10] MEDS: allopurinoL 300 MG TABLET PO SCH (08:09)
[2020-06-10] MEDS: ATORVASTATIN 40 MG TABLET PO SCH (08:09)
[2020-06-10] MEDS: FERROUS SULFATE 325 MG TABLET PO SCH (08:09)
[2020-06-10] MEDS: DOXYCYCLINE HYCLATE 100 MG CAPSULE PO SCH ×2 (08:10→21:59)
[2020-06-10] MEDS: APIXABAN 2.5 MG TABLET PO SCH ×2 (08:10→21:59)
[2020-06-10] MEDS: amLODIPine 5 MG TABLET PO SCH (08:10)
[2020-06-10] MEDS: AMIODARONE 200 MG TABLET PO SCH (08:10)
[2020-06-10] MEDS: SEVELAMER CARBONATE 800 MG TABLET PO SCH ×3 (08:10→17:21)
[2020-06-10] MEDS: METOPROLOL TARTRATE 25 MG TABLET PO SCH ×2 (08:10→21:59)
[2020-06-11] MEDS: ALBUTEROL/IPRATROPIUM 3 ML NEB RESP TX SCH ×3 (01:33→13:52)
[2020-06-11] MEDS: methylPREDNISolone SOD SUC 40 MG/1 ML VIAL IV SCH (03:02)
[2020-06-11] MEDS: PIPERACILLIN/TAZOBACTAM 3,375 MG in SODIUM CHLORIDE 0.9% 100 ML IV SCH (03:07)
[2020-06-11 04:11] LABS: Basophils % 0.1 % (0.0-0.8); Hematocrit 30.5 VOL% (42.0-52.0); Hemoglobin 9.5 GM/DL (14.0-18.0); Immature Granulocytes % 2.4 %; Immature Granulocytes Absolute 0.34 #; Lymphocytes # 1.5 10*3/uL (1.4-4.0); Mean Corpuscular HGB Conc 31.1 GM/DL (32-36); Mean Platelet Volume 11.7 FL (9.6-12.0); Monocytes % 6.1 % (1.7-12.7); NRBC # 0.67 10*3/uL; Neutrophils % 80.4 % (38.7-73.9); Platelet Count 203 T/CUMM (130-400); Red Blood Count 2.99 MC/CUMM (3.8-5.5); Red Cell Distribution Width 20.1 % (9.3-17.3); White Blood Count 13.9 T/CUMM (4-12)
[2020-06-11 04:33] LABS: Calcium 8.9 MG/DL (8.5-10.1); Osmolality,Calculated 285.2 MOS/KG (273-304); Potassium 4.2 MMOL/L (3.5-5.1)
[2020-06-11 07:27] VITALS: BP 127/54
[2020-06-11] MEDS: BUDESONIDE 0.5 MG/2 ML NEB RESP TX SCH (07:28)
[2020-06-11] MEDS: SEVELAMER CARBONATE 800 MG TABLET PO SCH (08:26)
[2020-06-11] MEDS: amLODIPine 5 MG TABLET PO SCH (08:26)
[2020-06-11] MEDS: APIXABAN 2.5 MG TABLET PO SCH (08:26)
[2020-06-11] MEDS: AMIODARONE 200 MG TABLET PO SCH (08:26)
[2020-06-11] MEDS: allopurinoL 300 MG TABLET PO SCH (08:26)
[2020-06-11] MEDS: METOPROLOL TARTRATE 25 MG TABLET PO SCH (08:26)
[2020-06-11] MEDS: FERROUS SULFATE 325 MG TABLET PO SCH (08:26)
[2020-06-11] MEDS: POLYETHYLENE GLYCOL POWDER 17 GM PACK PO SCH (08:27)
[2020-06-11] MEDS: ATORVASTATIN 40 MG TABLET PO SCH (08:27)
== END 2020-06-11 15:03 | disposition swing bed (61) | DRG 291 ==
LOC: EDUNIT# → EDBD → N.ED 14:25 → N.EDINP 16:20 → N.5E 17:32
PROVIDERS: ADMIT Internal Medicine; ATTEND Internal Medicine

== ENCOUNTER 2020-07-25 00:16 | Observation (INO) ==
[2020-07-25] MEDS ORDERED: ASPIRIN 325 MG TABLET PO STA (01:07)
[2020-07-25 01:27] LABS: Albumin 3.4 G/DL (3.4-5.0); Basophils % 0.2 % (0.0-0.8); Bilirubin,Total 0.4 MG/DL (0.2-1.0); Calcium 9.3 MG/DL (8.5-10.1); Eosinophils # 0.1 10*3/uL (0.0-0.87); Eosinophils % 0.7 % (0.00-10.9); Hematocrit 46.2 VOL% (42.0-52.0); Hemoglobin 15.2 GM/DL (14.0-18.0); Immature Granulocytes % 0.7 %; Immature Granulocytes Absolute 0.08 #; Lymphocytes # 1.6 10*3/uL (1.4-4.0); Lymphocytes % 14.2 % (21.2-54.2); Mean Corpuscular HGB Conc 32.9 GM/DL (32-36); Mean Corpuscular Volume 99.8 FL (87-102); Mean Platelet Volume 12.5 FL (9.6-12.0); Monocytes % 15.1 % (1.7-12.7); Neutrophils % 69.1 % (38.7-73.9); Platelet Count 159 T/CUMM (130-400); Red Blood Count 4.63 MC/CUMM (3.8-5.5); Red Cell Distribution Width 18.4 % (9.3-17.3); Total Protein 8.1 G/DL (6.4-8.2); White Blood Count 11.4 T/CUMM (4-12)
[2020-07-25] MEDS: NITROGLYCERIN SL 0.4 MG TABLET SL PRN ×3 (01:29→01:58)
[2020-07-25 01:30] LABS: PT Patient Result 10.9 SECS (9.8-11.9)
[2020-07-25] MEDS ORDERED: MORPHINE 4 MG/1 ML VIAL IV STA (02:11)
[2020-07-25] MEDS ORDERED: hydrALAZINE 20 MG/1 ML VIAL IV STA (02:11)
[2020-07-25] MEDS ORDERED: ONDANSETRON 4 MG/2 ML VIAL IV ONE (02:11)
[2020-07-25 02:15] LABS: Platelet Estimate Normal
[2020-07-25] MEDS ORDERED: GLUCAGON 1 MG VIAL IM PRN (02:43)
[2020-07-25] MEDS ORDERED: diphenhydrAMINE CAP 25 MG CAPSULE PO PRN (02:43)
[2020-07-25] MEDS ORDERED: NICOTINE 21 MG/24 HR PATCH TRANSDERM PRN (02:43)
[2020-07-25] MEDS ORDERED: hydrALAZINE 20 MG/1 ML VIAL IV PRN (02:43)
[2020-07-25] MEDS ORDERED: ACETAMINOPHEN 325 MG TABLET PO PRN (02:43)
[2020-07-25] MEDS ORDERED: ONDANSETRON 4 MG/2 ML VIAL IV PRN (02:43)
[2020-07-25] MEDS ORDERED: DEXTROSE 50% 25 GM/50 ML VIAL IV PRN (02:43)
[2020-07-25] MEDS: SEVELAMER CARBONATE 800 MG TABLET PO SCH ×3 (08:40→16:49)
[2020-07-25] MEDS ORDERED: AMIODARONE 200 MG TABLET PO SCH (09:00)
[2020-07-25] MEDS ORDERED: FERROUS SULFATE 325 MG TABLET PO SCH (09:00)
[2020-07-25] MEDS ORDERED: APIXABAN 2.5 MG TABLET PO SCH (09:00)
[2020-07-25] MEDS ORDERED: METOPROLOL TARTRATE 25 MG TABLET PO SCH ×2 (09:00→21:00)
[2020-07-25] MEDS ORDERED: amLODIPine 5 MG TABLET PO SCH (09:00)
[2020-07-25] MEDS ORDERED: KETOROLAC 30 MG/1 ML VIAL IV ONE (10:44)
[2020-07-25] MEDS ORDERED: amLODIPine 5 MG TABLET PO ONE (12:16)
[2020-07-25] MEDS ORDERED: SKIN HEALING OINT (AQUAPHOR) 50 GM TUBE TOP PRN (14:04)
[2020-07-25] MEDS ORDERED: HEPARIN 10,000 UNIT/10 ML VIAL IV SCH (15:45)
[2020-07-25 17:11] VITALS: BP 115/69
[2020-07-25] MEDS ORDERED: ATORVASTATIN 20 MG TABLET PO SCH (21:00)
[2020-07-26] MEDS ORDERED: amLODIPine 10 MG TABLET PO SCH (09:00)
== END 2020-07-25 18:45 | disposition home or self-care (01) ==
LOC: EDUNIT# → N.ED 00:16 → N.EDINP 00:16 → SUATTDRO 02:43 → N.EDINP 03:51 → N.TELEN 04:22
PROVIDERS: ADMIT Internal Medicine; ATTEND Hospitalist